=== PATIENT | female | born 1955 | race Caucasian/White ===

== ENCOUNTER → 2020-05-13 11:25 | Outpatient (CLI) | payer OTHER, SELFPAY ==
[2020-05-13 12:24] LABS: Basophils # 0.1 K/mm3 (0-0.2); Basophils % 1.3 % (0.1-2.0); Eosinophils # 0.3 K/mm3 (0.0-0.4); Eosinophils % 2.6 % (0.1-12.0); Hematocrit 41.9 % (37.0-47.0); Hemoglobin 14.5 g/dL (12.2-16.2); Lymphocytes # 2.7 K/mm3 (0.7-4.5); Lymphocytes % 25.5 % (10-50); Mean Corpuscular HGB Conc 34.6 g/dL (31.8-35.4); Mean Corpuscular Hemoglobin 31.9 pg (27.0-31.2); Mean Corpuscular Volume 92.4 fl (81-99); Mean Platelet Volume 7.8 fl (7.4-10.4); Monocytes # 0.5 K/mm3 (0.1-1.0); Monocytes % 4.3 % (1.7-9.3); Neutrophils % 66.3 % (37.0-80.0); Platelet Count 299 K/mm3 (142-424); Red Blood Count 4.53 M/mm3 (4.20-5.40); Red Cell Distribution Width 13.6 % (11.5-17.5); White Blood Count 10.6 K/mm3 (4.8-10.8)
[2020-05-13 12:41] LABS: Alanine Aminotransferase 27 U/L (12-78); Albumin Level 4.2 g/dl (3.5-5.0); Albumin/Globulin Ratio 1.2 (1.1-1.8); Alkaline Phosphatase 145 U/L (38-126); Anion Gap 13.9 mEq/L (5-15); Aspartate Amino Transferase 38 U/L (14-36); Bilirubin,Total 0.4 mg/dl (0.2-1.3); Blood Urea Nitrogen 23 mg/dl (7-17); Calcium 9.9 mg/dl (8.4-10.2); Carbon Dioxide 30 mmol/L (22.0-30.0); Chloride 102 mmol/L (98-107); Chol/HDL Ratio 4.2 (1-3.5); Cholesterol 184 mg/dl (140-200); Estimated Glomerular Filt Rate 55 ml/min (>60); GFR (African American) 67 ML/MIN (>60); Globulin 3.4 g/dL (1.3-3.2); Glucose 162 mg/dl (74-100); HDL Cholesterol 44 mg/dl (40-60); Potassium 4.9 mmoL/L (3.5-5.1); Sodium 141 mmol/L (136-145); Total Protein,Serum 7.6 g/dl (6.3-8.2); Triglycerides 217 mg/dl (30-150); VLDL Cholesterol 43 mg/dL (0-40)
[2020-05-13 12:52] LABS: Direct LDL Cholesterol 95.23 mg/dL (100-129)
[2020-05-13 13:05] LABS: Hemoglobin A1C 10.8 % (4.0-6.0)
[2020-05-13 13:12] LABS: Thyroid Stimulating Hormone 0.47 uIU/mL (0.465-4.68)
[2020-05-13 13:21] LABS: Creatinine,Urine Random 71 mg/dL (Not Estab.)
[2020-05-13 13:23] LABS: Microalbumin/Creatinine Ratio 181.9
[2020-05-13 13:30] LABS: Vitamin B12 720 pg/mL (239-931)
== END ==
PROVIDERS: Visit Provider Nurse Practitioner Family
DX: E11.65 Type 2 diabetes mellitus with hyperglycemia (principal); E11.42 Type 2 diabetes mellitus with diabetic polyneuropathy
CPT/HCPCS: 36415; 80053; 80061; 82043; 82570; 82607; 83036; 84443; 85025

== ENCOUNTER → 2020-06-25 12:53 | Outpatient (CLI) | payer OTHER, MEDICARE, SELFPAY ==
--- NOTE | 2020-06-25 12:57 | CT_ITS ---
PROCEDURE: CT LUNG SCREENING CLINICAL INDICATION: H/O NICOTINE DEPENDENCE FORMER SMOKER QUIT 6 YEARS AGO 88 pack year smoking history COPD CHEST WITH, 05/24/14 COMPARISON: CT CHW CT CHEST W/ CONTRAST from 05/24/2014 TECHNIQUE: The exam was performed on a [employer] Speed [address] scanner using 2.90 mGy CTDI. A low dose helical CT CHEST was performed on a multi-detector scanner. All CT scans at the facility use one or more dose reduction, viz: automated exposure control, ma/kV adjustment per patient size (including targeted exams where dose is matched to indication, i.e. head), or iterative reconstruction technique. The LDCT was performed in a facility that meets the criteria for the screening program. Data regarding this exam was submitted to ACR which is an approved registry. The order for this exam indicates that it came as a result of a lung cancer screening counseling shard decision-making visit that included all the elements required of such a visit including smoking cessation. The radiologist interpreting this exam meets the CMS criteria for the LDCT lung cancer screening program. The exam is reported using the Lung-RADS classification scale and reported to the ACR registry. NOTE: This study was performed for the specific purposes of lung cancer screening and is not an alternative to diagnostic chest CT. RADIATION DOSE: CTDI vol(CT dose Index-volume) = 2.90mG DLP (Dose Length Product) = 96.38 mGcm FINDINGS: Changes of COPD. Old granulomatous disease. No suspicious pulmonary nodules identified. OTHER FINDINGS: Coronary artery calcification. There are a few subphrenic lymph nodes on right and pre cardial lymph nodes which are not significantly changed. IMPRESSION: Lung-RADS Category 1 Negative Follow-up: Continue annual screening with LDCT in 12 months Dictated by: Cristobal Campos MD 07/16/2020 07:18 Cristobal Campos MD in [place] 07/16/2020 07:19
--- NOTE | 2020-06-25 12:58 | MM_ITS ---
PROCEDURE: MM DIG SCREENING MAMM BI W/CAD Digital Breast Tomosynthesis Included CLINICAL INDICATION: SCREENING There is no personal or family history of breast cancer. COMPARISON: MG DMSB DIGITAL MAMM-SCREEN BILATERAL from 10/03/2012 TECHNIQUE: Standard CC and MLO images and 3D Tomosynthesis was obtained. R2 CAD reviewed. FINDINGS: The breasts are composed primarily of fat with minimal scattered fibroglandular densities throughout each breast. There is a mole marker left breast. There is either unusual calcification or biopsy clip near the nipple right breast. There is no suspicious lesion and no suspicious microcalcifications. IMPRESSION: Fibrofatty parenchyma with no suspicious lesions seen BI-RAD Category: 2 Benign Finding(s) FOLLOW-UP: 1YR 1 Year Follow-up (A letter has been sent to the patient regarding results of the study.) Dictated by: Dr. Mookie Gilmore MD 06/27/2020 15:47 Dr. Mookie Gilmore MD in [place] 06/27/2020 15:47
== END ==
PROVIDERS: PCP Nurse Practitioner Family; Visit Provider Nurse Practitioner Family
DX: Z12.31 Encounter for screening mammogram for malignant neoplasm of breast (principal); Z87.891 Personal history of nicotine dependence; Z12.2 Encounter for screening for malignant neoplasm of respiratory organs; N95.9 Unspecified menopausal and perimenopausal disorder
CPT/HCPCS: 77063; 77067

== ENCOUNTER → 2020-07-10 12:48 | Outpatient (CLI) | payer OTHER, MEDICARE, SELFPAY ==
--- NOTE | 2020-07-10 12:57 | XR_ITS ---
PROCEDURE: XR DEXA AXIAL SKELETON CLINICAL HISTORY: POST MENOPAUSAL, history of hip or vertebral fracture as an adult COMPARISON: No exams were available for comparison FINDINGS: The total right hip BMD is 0.907 g per sq cm with a T-score of -0.3. The right femoral neck is 0.714 g per sq cm with a T-score -1.2.. The total left hip BMD is 0.978 g per sq cm with a T-score of 0.3. The left femoral neck is 0.761 g per sq cm. The lumbar spine BMD is 1.153 g per sq cm with a T-score of 1.0.. IMPRESSION: Normal values for the left hip and lumbar spine, mild osteopenia right hip Based on these results a follow-up exam is recommended in 2 year. Dictated by: Dr. Mookie Gilmore MD 07/10/2020 16:00 Dr. Mookie Gilmore MD in [place] 07/10/2020 16:00
== END ==
PROVIDERS: PCP Nurse Practitioner Family; Visit Provider Nurse Practitioner Family
DX: Z13.820 Encounter for screening for osteoporosis (principal); N95.9 Unspecified menopausal and perimenopausal disorder
CPT/HCPCS: 77080

== ENCOUNTER → 2020-09-11 14:44 | Outpatient (CLI) | payer OTHER, MEDICARE, SELFPAY ==
[2020-09-11 15:47] LABS: Hemoglobin A1C 9.8 % (4.0-6.0)
[2020-09-11 16:23] LABS: Chloride 104 mmol/L (98-107); Potassium 4.4 mmoL/L (3.5-5.1); Sodium 141 mmol/L (136-145)
[2020-09-11 16:26] LABS: Alanine Aminotransferase 14 U/L (12-78); Albumin Level 4.1 g/dl (3.5-5.0); Alkaline Phosphatase 145 U/L (38-126); Anion Gap 12.4 mEq/L (5-15); Aspartate Amino Transferase 26 U/L (14-36); Bilirubin,Total 0.4 mg/dl (0.2-1.3); Blood Urea Nitrogen 36 mg/dl (7-17); Calcium 10.2 mg/dl (8.4-10.2); Carbon Dioxide 29 mmol/L (22.0-30.0); Estimated Glomerular Filt Rate 50 ml/min (>60); GFR (African American) 60 ML/MIN (>60); Globulin 4.1 g/dL (1.3-3.2); Glucose 151 mg/dl (74-100); Total Protein,Serum 8.2 g/dl (6.3-8.2)
== END ==
PROVIDERS: Visit Provider Nurse Practitioner Family
DX: E11.9 Type 2 diabetes mellitus without complications (principal); Z79.4 Long term (current) use of insulin
CPT/HCPCS: 36415; 80053; 83036

== ENCOUNTER → 2021-01-19 14:57 | Outpatient (CLI) | payer OTHER, MEDICARE, SELFPAY ==
[2021-01-19 15:39] LABS: Hemoglobin A1C 9.2 % (4.0-6.0)
[2021-01-19 16:20] LABS: Chloride 101 mmol/L (98-107)
[2021-01-19 16:21] LABS: Sodium 142 mmol/L (136-145)
[2021-01-19 16:35] LABS: Direct LDL Cholesterol 85.88 mg/dL (100-129)
[2021-01-19 20:12] LABS: Alanine Aminotransferase 19 U/L (12-78); Albumin Level 4.2 g/dl (3.5-5.0); Albumin/Globulin Ratio 1.1 (1.1-1.8); Alkaline Phosphatase 129 U/L (38-126); Anion Gap 15.7 mEq/L (5-15); Aspartate Amino Transferase 29 U/L (14-36); Bilirubin,Total 0.4 mg/dl (0.2-1.3); Blood Urea Nitrogen 25 mg/dl (7-17); Calcium 9.4 mg/dl (8.4-10.2); Carbon Dioxide 30 mmol/L (22.0-30.0); Chol/HDL Ratio 4.9 (1-3.5); Cholesterol 180 mg/dl (140-200); Estimated Glomerular Filt Rate 63 ml/min (>60); GFR (African American) 76 ML/MIN (>60); Globulin 3.7 g/dL (1.3-3.2); Glucose 145 mg/dl (74-100); HDL Cholesterol 37 mg/dl (40-60); Potassium 4.7 mmoL/L (3.5-5.1); Total Protein,Serum 7.9 g/dl (6.3-8.2); Triglycerides 222 mg/dl (30-150); VLDL Cholesterol 44 mg/dL (0-40)
== END ==
PROVIDERS: Visit Provider Nurse Practitioner Family
DX: E11.42 Type 2 diabetes mellitus with diabetic polyneuropathy (principal)
CPT/HCPCS: 36415; 80053; 80061; 83036

== ENCOUNTER 2021-03-22 13:18 | Emergency (ER) | payer OTHER, MEDICARE, SELFPAY ==
[2021-03-22 13:37] VITALS: PULSE 117; RESP 16; TEMP 36.9; O2SAT 99; BMI 35.2
[2021-03-22 13:43] VITALS: BP 130/77; PULSE 117; RESP 20; TEMP 36.9
--- NOTE | 2021-03-22 14:05 | HMH.EDUTC ---
[facility] [place] Clinical Impression: Exposure to COVID-19 virus Disposition: Home, Self-Care Condition on Discharge: Good Instructions: Preventing the Spread of Coronavirus Discharge Instructions Additional Instructions: You have been tested for COVID19. Based on exposure, you need to quarantine even if negative. If positive, contact PCP to discuss possible antibody infusion due to comorbidities. Prescriptions: Albuterol Sulfate [Albuterol Sulfate Hfa] 2 puffs IH Q4HP PRN 30 Days #1 each PRN Reason: Shortness Of Breath [facility] guaiFENesin [Mucinex] 600 mg PO BID 10 Days #20 tab Transmission Status: [facility] Azithromycin [Z-Epifanio 250mg Tab] 250 mg PO DIRECTED #6 tab Transmission Status: [facility] Referrals: Feli Chavez APRN [Primary Care Provider] - Forms: Work/School Release Time of Disposition: 14:10 Medical Decision Making - Jorge Luis Inquiry Pt receiving controlled substance: No Vital Signs: 03/22/21 13:37 03/22/21 13:43 Temperature 98.5 F 98.5 F Temperature Source Oral Pulse Rate 117 H Pulse Rate [Left] 117 H Respiratory Rate 16 20 Blood Pressure 130/77 02 Sat by Pulse Oximetry 99 Orders (Tests/Meds): ORDERS Category Date Time Status Covid-19 Nasal PCR ([facility]) Routine Lab 03/22/21 13:39 [place] [facility] [place] - General Stated complaint: covid test, sore throat, runny nose headache Time Seen by Provider: 03/22/21 14:05 Mode of Arrival: Ambulatory Source of Information: Patient Limitations: No Limitations Description of Symptoms (Recalled from Triage Doc. by RN): pt c/o a cough accompanied by chest discomfort, STEPHENSON, and soa (copd pt.) exposed to covid YESTERDAY HEENT Symptoms (Recalled from RN notes): Yes (STEPHENSON) Resp Symptoms (Recalled from RN notes): Yes (cough and soa) Skin Symptoms (Recalled from RN notes): No MS Symptoms (Recalled from RN notes): No Functional Status (Recalled from RN notes): na - History of Present Illness Provider Complaint: Headache, cough, chest tightness since yesterday. No fever. No body aches or chills. Exposed to COVID19 yesterday. History of COPD and diabetes. Onset (ago): day(s) (1) Location: chest Relieving factors: none Exacerbating factors: none Associated symptoms: denies other symptoms, cough Treatments prior to arrival: none - Related Data Home Medications Medication Instructions Recorded Confirmed diclofenac sodium 1 % topical gel 2 g TOPICAL QID 05/27/20 05/27/20 empagliflozin 25 mg tablet 25 mg PO DAILY 05/27/20 05/27/20 gabapentin 100 mg capsule 100 mg PO DAILY 05/27/20 05/27/20 glimepiride 4 mg tablet 4 mg PO BID tab 05/27/20 05/27/20 insulin glargine U-300 conc 300 60 unit SQ DAILY 05/27/20 05/27/20 unit/mL (3 mL) subcutaneous pen insulin lispro 100 unit/mL 5 unit SQ TID 05/27/20 05/27/20 subcutaneous pen lisinopril 5 mg tablet 5 mg PO DAILY 05/27/20 05/27/20 omeprazole magnesium 20 mg 20 mg PO DAILY 05/27/20 05/27/20 tablet,delayed release pravastatin 40 mg tablet 40 mg PO DAILY 05/27/20 05/27/20 Previous Rx's Medication Instructions Recorded Albuterol Sulfate [Albuterol 2 puffs IH Q4HP PRN 30 Days #1 each 03/22/21 Sulfate Hfa] Azithromycin [Z-Epifanio 250mg Tab] 250 mg PO DIRECTED #6 tab 03/22/21 guaiFENesin [Mucinex] 600 mg PO BID 10 Days #20 tab 03/22/21 Allergies Allergy/AdvReac Type Severity Reaction Status Date / Time silver sulfadiazine Allergy Unknown Verified 05/27/20 13:14 [From Silvadene] - Worker's Comp Is this a Worker's Comp case?: No [facility] History - Hepatitis A Screen Drug use history?: No High risk sexual behaviors?: No History of sexually transmitted infection?: No Currently employed?: No Childcare worker?: No Do you have indoor plumbing?: Yes Do you have electricity?: Yes Attestation statement:: This patient has been screened for Hepatitis A risk factors. I hav
--- NOTE | 2021-03-23 10:45 | PC.NURSE ---
Notified pt of positive COVID results
== END 2021-03-22 14:19 | disposition home or self-care (01) ==
PROVIDERS: Emergency Provider Physician Assistant; PCP Nurse Practitioner Family
DX: U07.1 COVID-19 (principal); J44.9 Chronic obstructive pulmonary disease, unspecified; E11.9 Type 2 diabetes mellitus without complications
CPT/HCPCS: 99202; C9803; G0463; U0003; U0005

== ENCOUNTER → 2021-09-19 09:34 | Outpatient (CLI) | payer OTHER, MEDICARE, SELFPAY ==
[2021-09-19 10:14] LABS: Basophils # 0.2 K/mm3 (0-0.2); Basophils % 1.7 % (0.1-2.0); Eosinophils # 0.3 K/mm3 (0.0-0.4); Eosinophils % 2.6 % (0.1-12.0); Hematocrit 38.6 % (37.0-47.0); Hemoglobin 12.6 g/dL (12.2-16.2); Lymphocytes % 20.6 % (10-50); Mean Corpuscular HGB Conc 32.5 g/dL (31.8-35.4); Mean Corpuscular Hemoglobin 29.4 pg (27.0-31.2); Mean Corpuscular Volume 90.4 fl (81-99); Mean Platelet Volume 8.4 fl (7.4-10.4); Monocytes # 0.6 K/mm3 (0.1-1.0); Monocytes % 5.7 % (1.7-9.3); Neutrophils # 6.8 K/mm3 (1.8-7.8); Neutrophils % 69.3 % (37.0-80.0); Platelet Count 334 K/mm3 (142-424); Red Blood Count 4.27 M/mm3 (4.20-5.40); Red Cell Distribution Width 13.7 % (11.5-17.5); White Blood Count 9.8 K/mm3 (4.8-10.8)
[2021-09-19 10:48] LABS: Alanine Aminotransferase 18 U/L (12-78); Albumin Level 3.6 g/dl (3.5-5.0); Albumin/Globulin Ratio 1.1 (1.1-1.8); Alkaline Phosphatase 161 U/L (38-126); Anion Gap 10.1 mEq/L (5-15); Aspartate Amino Transferase 25 U/L (14-36); Bilirubin,Total 0.3 mg/dl (0.2-1.3); Blood Urea Nitrogen 18 mg/dl (7-17); Calcium 8.8 mg/dl (8.4-10.2); Carbon Dioxide 28 mmol/L (22.0-30.0); Chloride 105 mmol/L (98-107); Chol/HDL Ratio 4.6 (1-3.5); Cholesterol 176 mg/dl (140-200); Estimated Glomerular Filt Rate 72 ml/min (>60); GFR (African American) 87 ML/MIN (>60); Globulin 3.2 g/dL (1.3-3.2); Glucose 224 mg/dl (74-100); HDL Cholesterol 38 mg/dl (40-60); Potassium 4.1 mmoL/L (3.5-5.1); Sodium 139 mmol/L (136-145); Total Protein,Serum 6.8 g/dl (6.3-8.2); Triglycerides 243 mg/dl (30-150); VLDL Cholesterol 49 mg/dL (0-40)
[2021-09-19 11:57] LABS: Hemoglobin A1C 12.7 % (4.0-6.0)
== END ==
PROVIDERS: Visit Provider Nurse Practitioner Family
DX: E11.65 Type 2 diabetes mellitus with hyperglycemia (principal); K21.9 Gastro-esophageal reflux disease without esophagitis; Z79.4 Long term (current) use of insulin
CPT/HCPCS: 36415; 80053; 80061; 83036; 85025

== ENCOUNTER → 2021-09-29 13:03 | Outpatient (CLI) | payer OTHER, MEDICARE, SELFPAY ==
--- NOTE | 2021-09-29 13:06 | MM_ITS ---
PROCEDURE INFORMATION: Exam: MG Bilateral Screening 3D Mammography Exam date and time: 09/29/2021 1:17 PM Age: 66 years old Clinical indication: Encounter for screening mammogram for malignant neoplasm of breast TECHNIQUE: Imaging protocol: Bilateral Screening tomosynthesis and 2D mammography including computer-aided detection (CAD) when performed. COMPARISON: 1. MG MM DIG SCREENING MAMM BI W/CAD 06/25/2020 1:03 PM 2. MG DMSB DIGITAL MAMM-SCREEN BILATERAL 10/03/2012 9:22 AM FINDINGS: MAMMOGRAPHY: Breast composition: There are scattered areas of fibroglandular density. Mass: No suspicious masses. Architectural distortion: No suspicious distortion. Calcifications: No suspicious calcifications. Asymmetric density: None. Skin thickening: None. Axillary adenopathy: None. IMPRESSION: No mammographic evidence of malignancy. Annual screening is recommended unless otherwise clinically indicated. ASSESSMENT: BI-RADS Category 1: Negative
--- NOTE | 2021-09-29 13:06 | CT_ITS ---
FINAL REPORT CLINICAL HISTORY: H/O NICOTINE DEPENDENCE FORMER SMOKER QUIT 6 YEARS AGO 2PPD X45 YEARS COMPARISON: June 25, 2020 FINDINGS: Low-Dose Chest CT CTDI vol (mGy): 2.90 DLP (mGy-cm): 98.99 Axial images were obtained from the lung apex to the mid abdomen by computed tomography. Low-dose protocol was utilized. FINDINGS: CHEST: There is no axillary adenopathy. There is no mediastinal adenopathy. There are densely calcified bilateral hilar lymph nodes. The heart is proper size. There is no pericardial or pleural effusion. Limited images of the upper abdomen shows postoperative changes from cholecystectomy. Lung window images demonstrate scarring in the lung bases. There is no suspicious infiltrate or nodule. IMPRESSION: Lung RADS category 1. Recommend 12 month follow-up low-dose chest CT. Reviewed, Interpreted and Dictated by Maxx Carlisle MD Transcribed by Chayito Olmedo Authenticated by Maxx Carlisle MD on 09/29/2021 01:53:[address] [facility]
== END ==
PROVIDERS: PCP Nurse Practitioner Family; Visit Provider Nurse Practitioner Family
DX: Z12.31 Encounter for screening mammogram for malignant neoplasm of breast (principal); Z87.891 Personal history of nicotine dependence; Z12.2 Encounter for screening for malignant neoplasm of respiratory organs
CPT/HCPCS: 71271; 77063; 77067

== ENCOUNTER → 2022-02-17 07:43 | Outpatient (CLI) | payer OTHER, MEDICARE, SELFPAY ==
[2022-02-17 08:27] LABS: Hemoglobin A1C 10.7 % (4.0-6.0)
[2022-02-17 08:46] LABS: Chloride 104 mmol/L (98-107); Potassium 5.1 mmoL/L (3.5-5.1); Sodium 141 mmol/L (136-145)
[2022-02-17 08:49] LABS: Albumin Level 4.1 g/dl (3.5-5.0); Albumin/Globulin Ratio 1.2 (1.1-1.8); Anion Gap 13.1 mEq/L (5-15); Blood Urea Nitrogen 31 mg/dl (7-17); Carbon Dioxide 29 mmol/L (22.0-30.0); Estimated Glomerular Filt Rate 55 ml/min (>60); GFR (African American) 67 ML/MIN (>60); Globulin 3.5 g/dL (1.3-3.2); Total Protein,Serum 7.6 g/dl (6.3-8.2)
[2022-02-17 08:50] LABS: Glucose 249 mg/dl (74-100); HDL Cholesterol 41 mg/dl (40-60)
[2022-02-17 09:12] LABS: Alkaline Phosphatase 162 U/L (38-126); Chol/HDL Ratio 4.6 (1-3.5); Cholesterol 189 mg/dl (140-200); Triglycerides 197 mg/dl (30-150); VLDL Cholesterol 39 mg/dL (0-40)
[2022-02-17 09:13] LABS: Calcium 9.7 mg/dl (8.4-10.2)
[2022-02-17 09:15] LABS: Bilirubin,Total < 0.1 mg/dl (0.2-1.3)
[2022-02-17 09:39] LABS: Alanine Aminotransferase 16 U/L (12-78); Aspartate Amino Transferase 27 U/L (14-36)
[2022-02-18 10:11] LABS: Direct LDL Cholesterol 109 mg/dL (100-129)
== END ==
PROVIDERS: PCP Nurse Practitioner Family; Visit Provider Nurse Practitioner Family
DX: E11.65 Type 2 diabetes mellitus with hyperglycemia (principal); E11.42 Type 2 diabetes mellitus with diabetic polyneuropathy; Z79.4 Long term (current) use of insulin
CPT/HCPCS: 36415; 80053; 80061; 83036

== ENCOUNTER → 2022-03-06 10:59 | Outpatient (CLI) | payer OTHER, MEDICARE, SELFPAY | PROVIDERS: PCP Nurse Practitioner Family; Visit Provider Nurse Practitioner Family | DX: R30.0 Dysuria (principal); B96.29 Other Escherichia coli [E. coli] as the cause of diseases classified elsewhere | CPT/HCPCS: 87086; 87088; 87186 ==

== ENCOUNTER 2022-12-21 06:58 | Day surgery (SDC) | payer OTHER, MEDICARE, SELFPAY ==
[2022-12-20 10:39] VITALS: BMI 36.7
[2022-12-21 07:57] VITALS: BP 141/62; PULSE 84; RESP 16; TEMP 36.2; O2SAT 99
[2022-12-21 08:09] LABS: POC Glucose,Bedside 133 (70-110)
[2022-12-21 09:01] VITALS: BP 139/73; PULSE 82; RESP 16; O2SAT 96
[2022-12-21 09:07] VITALS: BP 123/75; PULSE 79; RESP 17; O2SAT 95
[2022-12-21 09:12] VITALS: BP 129/68; PULSE 79; RESP 16; O2SAT 95
[2022-12-21 09:17] VITALS: BP 128/73; PULSE 78; RESP 17; O2SAT 95
[2022-12-21 09:40] VITALS: BP 128/67; PULSE 86; RESP 18; TEMP 36.1; O2SAT 95
== END 2022-12-21 09:31 | disposition home or self-care (01) ==
PROVIDERS: PCP Nurse Practitioner Family; Visit Provider Ophthalmology
PROC: (CPT 66984; principal; 2022-12-21 09:00)
DX: E11.36 Type 2 diabetes mellitus with diabetic cataract (principal); H25.9 Unspecified age-related cataract
CPT/HCPCS: 66984; 82962; V2632

== ENCOUNTER 2023-01-04 07:45 | Day surgery (SDC) | payer OTHER, MEDICARE, SELFPAY ==
[2022-12-30 15:35] VITALS: BMI 36.7
[2023-01-04] VITALS (8 sets, daily range): BP systolic 128–161; BP diastolic 68–85; PULSE 71–76; RESP 16–18; TEMP 36.6–36.8; O2SAT 96–100
[2023-01-04 08:32] LABS: POC Glucose,Bedside 130 (70-110)
== END 2023-01-04 09:39 | disposition home or self-care (01) ==
PROVIDERS: PCP Nurse Practitioner Family; Visit Provider Ophthalmology
PROC: (CPT 66984; principal; 2023-01-04 10:00)
DX: H25.812 Combined forms of age-related cataract, left eye (principal); E11.9 Type 2 diabetes mellitus without complications
CPT/HCPCS: 66984; 82962; V2632

== ENCOUNTER 2024-03-24 16:38 | Emergency (ER) | payer OTHER, MEDICARE, SELFPAY ==
[2024-03-24 16:40] VITALS: BP 128/76; PULSE 89; RESP 20; TEMP 36.8; O2SAT 98; BMI 29.2
[2024-03-24 17:00] VITALS: BP 135/72; PULSE 94; O2SAT 92
--- NOTE | 2024-03-24 17:29 | ECG_ITS ---
APPROVED REPORT Exam: Resting ECG HR:90 bpm ECG Measurements Heart Rate 90 AXES NJ 159 P 47 QRSd 90 QRS 82 QT 357 T 48 QTc 405 Conclusion SINUS RHYTHM NORMAL ECG UNCONFIRMED REPORT Electronically signed by : Bipin Steven, 03/24/2024 23:09:43
--- NOTE | 2024-03-24 17:29 | XR_ITS ---
PROCEDURE INFORMATION: Exam: XR Chest Exam date and time: 03/24/2024 5:49 PM Age: 68 years old Clinical indication: Dyspnea TECHNIQUE: Imaging protocol: Radiologic exam of the chest. Views: 1 view. COMPARISON: CT LUNG SCREENING 09/29/2021 1:14 PM FINDINGS: Lungs: No evidence of acute pulmonary disease or infiltrates Pleural spaces: No large effusion or pneumothorax. Heart/Mediastinum: Stable cardiac and mediastinal contours. Bones/joints: No evidence of acute osseous abnormalities within the visualized portions of the thoracic spine and ribs. Osseous structures appear appropriate for patient age. IMPRESSION: No dense parenchymal consolidation, pleural effusion, or pneumothorax.
[2024-03-24 17:30] VITALS: BP 139/66; PULSE 89; O2SAT 96
--- NOTE | 2024-03-24 17:31 | ED_ITS ---
<Statement entered by Jaden Steven MD - 03/24/24 22:29> I was consulted by the ROSELINE, and we discussed the complexity of the problems being addressed. I approved the treatment and management plan for this patient's care in the emergency department, thus performing a substantive portion of the medical decision making. Jaden Steven MD, NICOLLE, FACEP Discharge Plan Disposition Patient Disposition: Home, Self-Care Condition: Good Prescriptions Prescriptions: New albuterol sulfate 2.5 mg /3 mL (0.083 %) solution for nebulization 2.5 mg inhalation Q6H PRN (Reason: dyspnea) Qty: 75 0RF (DME) nebulizer and compressor Device See Rx Instructions .Route Qty: 1 0RF Rx Instructions: As directed No Action gabapentin 100 mg capsule 100 mg PO DAILY pravastatin 40 mg tablet 40 mg PO DAILY lisinopril 5 mg tablet 5 mg PO DAILY Jardiance 25 mg tablet 25 mg PO DAILY insulin lispro [Humalog KwikPen Insulin] 100 unit/mL insulin pen 16 unit SQ TID Toujeo Max U-300 SoloStar 300 unit/mL (3 mL) insulin pen 90 unit SQ DAILY omeprazole magnesium [Prilosec OTC] 20 mg tablet,delayed release (DR/EC) 20 mg PO DAILY diclofenac sodium [Arthritis Pain (diclofenac)] 1 % gel 2 g TOPICAL QID Rx Instructions: apply to single elbow, wrist or hand; for hand includes palm/fingers/back of hand albuterol sulfate 8.5 GM HFA aerosol inhaler 2 puffs IH Q4HP PRN (Reason: Shortness Of Breath) 30 Days Qty: 1 0RF Referrals Follow up/Referrals: Jerod Post MD [Staff Physician] - 3 days (Call Tuesday morning for an appointment ) Feli Chavez APRN [Primary Care Provider] - 3 days Activity Restrictions/Add. Instructions Additional Instructions/Restrictions: Please follow up with your PCP as well as cardiology. Return to the ED if you have any worsening of symptoms or chest pain. Clinical Impressions Clinical Impression: VEE (dyspnea on exertion) Print Language Print Language: Faroese Discharge ED Provider: Jaden Steven General Adult HPI General Chief complaint: Shortness of Breath/Dyspnea Stated complaint: SOA Time Seen by Provider: 03/24/24 17:22 Mode of Arrival: Ambulatory Source of Information: Patient Limitations: No Limitations Description of Symptoms (Recalled from ER Triage Doc. by RN): c/o soa, dizziness and weakness since 1400 today History of Present Illness HPI narrative: Patient presents with acute onset of dyspnea. 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 She denies any chest pain. She is experiencing some generalized weakness, dizziness and near syncope. She does have a history of mild COPD and diabetes. She denies any cough, fever or vomiting. Related Data Home Medications ?Medication ?Instructions ?Recorded ?Confirmed diclofenac sodium 1 % topical gel 2 g topical QID Pain 05/27/20 12/30/22 (Arthritis Pain (diclofenac)) empagliflozin 25 mg tablet 25 mg PO DAILY Diabetes 05/27/20 12/30/22 (Jardiance) gabapentin 100 mg capsule 100 mg PO DAILY Pain 05/27/20 12/30/22 insulin glargine U-300 conc 300 90 unit SQ DAILY Diabetes 05/27/20 12/30/22 unit/mL (3 mL) subcutaneous pen (Toujeo Max U-300 SoloStar) insulin lispro 100 unit/mL 16 unit SQ TID Diabetes 05/27/20 12/30/22 subcutaneous pen (Humalog KwikPen (U-100) Insulin) lisinopril 5 mg tablet 5 mg PO DAILY High blood pressure 05/27/20 12/30/22 omeprazole magnesium 20 mg 20 mg PO DAILY Acid reflux 05/27/20 12/30/22 tablet,delayed release (Prilosec OTC) pravastatin 40 mg tablet 40 mg PO DAILY Cholesterol 05/27/20 12/30/22 Previous Rx's ?Medication ?Instructions ?Recorded albuterol sulfate 90 mcg/actuation 2 puffs IH Q4HP PRN Shortness Of 03/22/21 aerosol inhaler Breath 30 days #1 ea albuterol sulfate 2.5 mg/3 mL 2.5 mg (3 mL) inhalation Q6H PRN 03/24/24 (0.083 %) solution for nebulization dyspnea #75 mL nebulizer and compressor #1 ea 03/24/24 Allergies Allergy/AdvReac Type Severity Reaction Status Date / Time silver sulfadiazine Allergy Unknown Verified 01/04/23 08:18 [From [place]] [facility] Disclaimer: The information contained in this section may have been updated after the patient was seen, as this information can be updated by other users. Medical History (Updated 03/24/24 @ 21:05 by MICHELLE Bill) Sleep apnea COPD (chronic obstructive pulmonary disease) Gout History of gastroesophageal reflux (GERD) Diabetes mellitus, type 2 History of cataract Surgical History History of section History of hysterectomy History of cholecystectomy Family History Other Family history of cancer Family history of diabetes mellitus type II Family history of myocardial infarction Social History Smoking Status: Unknown if ever smoked alcohol intake: current substance use type: denies use current occupational status: employed Travel in the last 8 weeks: None ROS Obtained: Yes Systems reviewed as appropriate & no additional complaints except as documented Physical Exam General General appearance: alert and in no apparent distress Head Head exam: atraumatic and normocephalic Eye Eye exam: Present normal appearance and EOMI Chest Chest inspection: Present symmetric chest wall rise Respiratory Respiratory exam: Present normal lung sounds bilaterally; Absent wheezes or stridor Cardiovascular Cardiovascular exam: Present regular rate and normal rhythm; Absent systolic murmur Extremities Exam Extremities exam: Present full ROM; Absent edema Neurological Exam Neurological exam: Present alert and oriented X3 Psychiatric Psychiatric exam: Present normal affect and normal mood Skin Skin exam: Present warm, dry and intact Medical Decision Making Jorge Luis Inquiry Pt receiving controlled substance: No Vital Signs: 03/24/24 16:40 03/24/24 17:00 03/24/24 17:30 Temperature 98.2 F Temperature Source Oral Pulse Rate 94 H 89 Pulse Rate [Left Radial] 89 Respiratory Rate 20 Blood Pressure 135/72 139/66 Blood Pressure [Right Arm] 128/76 Blood Pressure Mean [Right Arm] 93 Blood Pressure Source Blood Pressure Source [Right Arm] Automatic Cuff Blood Pressure Position Blood Pressure Position [Right Arm] Sitting 02 Sat by Pulse Oximetry 98 92 L 96 Oxygen Delivery Method Room Air Room Air Room Air 03/24/24 18:37 03/24/24 19:45 Temperature Temperature Source Pulse Rate 85 88 Pulse Rate [Left Radial] Respiratory Rate 20 Blood Pressure 151/78 H 126/74 Blood Pressure [Right Arm] Blood Pressure Mean [Right Arm] Blood Pressure Source Automatic Cuff Blood Pressure Source [Right Arm] Blood Pressure Position Sitting Blood Pressure Position [Right Arm] 02 Sat by Pulse Oximetry 98 96 Oxygen Delivery Method Room Air Lab Data Lab Results 03/24/24 17:43: WBC 11.5 H, RBC 4.33, Hgb 12.5, Hct 40.1, MCV 92.6, MCH 28.9, M CHC 31.2 L, RDW 14.0, Plt Count 311, MPV 9.0, Neut % (Auto) 77.2, Lymph % (Auto) 15.8, [place] % (Auto) 4.3, Eos % (Auto) 1.8, Baso % (Auto) 0.9, Neut # (Auto) 8.9 H, Lymph # (Auto) 1.8, [place] # (Auto) 0.5, Eos # (Auto) 0.2, Baso # (Auto) 0.1, D -Dimer 0.57 H, Sodium 137, Potassium 4.3, Chloride 105, Carbon Dioxide 27, Anion Gap 9.3, BUN 26 H, Creatinine 1.00, Estimated Creat Clear 57, Estimated GFR 55 L , Est GFR ( Amer) 67, Glucose 167 H, Calcium 8.7, Total Bilirubin 0.5, AST 32, ALT 20, Alkaline Phosphatase 106, Troponin I < 0.01, NT-Pro-B Natriuret Pep 91.3, Total Protein 6.7, Albumin 3.2 L, Globulin 3.5 H, Albumin/Globulin Ratio 0.9 L 03/24/24 18:35: SARS-CoV-2 (PCR) Not detected, Influenza A Untype (PCR) Not detected, Influenza Type B (PCR) Not detected 03/24/24 20:30: Troponin I 0.01 03/24/24 17:43 03/24/24 17:43 Orders (Tests/Meds): ED MEDICATIONS Generic Name Dose Route Start Last Admin Trade Name Freq PRN Reason Stop Dose Admin Sodium Chloride 10 ml 03/24/24 17:28 Sodium Chloride 0.9% 10ml Flush Syringe IV 04/23/24 17:27 NEEDED PRN Maintain IV Site Discontinued Medications Generic Name Dose Route Start Last Admin Trade Name Freq PRN Reason Stop Dose Admin Albuterol Sulfate 2.5 mg 03/24/24 17:27 03/24/24 17:37 Albuterol 0.083% 2.5 Mg/3 Ml Neb IH 03/24/24 17:28 2.5 mg ONCE ONE Administration ORDERS Category Date Time Status XR chest portable Stat Exams 03/24/24 17:29 Completed Complete Blood Count Auto Diff Stat Lab 03/24/24 17:43 Completed Comprehensive Metabolic Panel Stat Lab 03/24/24 17:43 Completed D-Dimer Stat Lab 03/24/24 17:43 Completed NT Pro Brain Natriuretic Pep. Stat Lab 03/24/24 17:43 Completed Rapid PCR Covid and Flu A/B Stat Lab 03/24/24 18:35 Completed Troponin I Q3H Lab 03/24/24 17:43 Completed Troponin I Q3H Lab 03/24/24 20:30 Completed Troponin I Q3H Lab 03/24/24 23:30 Ordered Radiology Data #1: Image(s): Chest (No dense parenchymal consolidation, pleural effusion, or pneumothorax. ) Medical Decision Narrative: In summary patient is a 68-year-old female who presents the emergency department for evaluation of dyspnea. Patient is hemodynamically stable upon arrival, afebrile. Unremarkable physical exam. Differential diagnosis includes COPD, pneumonia, CHF, pulmonary embolism. Initial workup will be conducted with labs, chest x-ray, D-dimer, COVID and flu swab. Initial inventions include albuterol neb. Initial workup reviewed by me D-dimer is 0.57, per years criteria no further workup indicated as patient is low risk for pulmonary embolism. Upon repeat evaluation symptoms have resolved with albuterol. Given this patient is appropriate for discharge with prescription for albuterol. She will follow-up with her PCP this week as well as cardiology for further workup. Advised to return for any worsening or new symptoms. I informally interpreted the patient's chest x-ray or CT read and is unremarkable. Critical Care Critical Care Time Critical Care Time: No
[2024-03-24] MEDS: ALBUTEROL 0.083% 2.5 MG/3 ML NEB IH (17:37)
[2024-03-24 17:51] LABS: Basophils # 0.1 K/mm3 (0-0.2); Basophils % 0.9 % (0.1-2.0); Eosinophils # 0.2 K/mm3 (0.0-0.4); Eosinophils % 1.8 % (0.1-12.0); Hematocrit 40.1 % (37.0-47.0); Hemoglobin 12.5 g/dL (12.2-16.2); Lymphocytes # 1.8 K/mm3 (0.7-4.5); Lymphocytes % 15.8 % (10-50); Mean Corpuscular HGB Conc 31.2 g/dL (31.8-35.4); Mean Corpuscular Hemoglobin 28.9 pg (27.0-31.2); Mean Corpuscular Volume 92.6 fl (81-99); Monocytes # 0.5 K/mm3 (0.1-1.0); Monocytes % 4.3 % (1.7-9.3); Neutrophils # 8.9 K/mm3 (1.8-7.8); Neutrophils % 77.2 % (37.0-80.0); Platelet Count 311 K/mm3 (142-424); Red Blood Count 4.33 M/mm3 (4.20-5.40); White Blood Count 11.5 K/mm3 (4.8-10.8)
[2024-03-24 18:02] LABS: Alanine Aminotransferase 20 U/L (12-78); Albumin Level 3.2 g/dl (3.5-5.0); Albumin/Globulin Ratio 0.9 (1.1-1.8); Alkaline Phosphatase 106 U/L (38-126); Anion Gap 9.3 mEq/L (5-15); Aspartate Amino Transferase 32 U/L (14-36); Bilirubin,Total 0.5 mg/dl (0.2-1.3); Blood Urea Nitrogen 26 mg/dl (7-17); Calcium 8.7 mg/dl (8.4-10.2); Carbon Dioxide 27 mmol/L (22.0-30.0); Chloride 105 mmol/L (98-107); Creatinine Clearance Estimated 57 mL/min (50-200); Estimated Glomerular Filt Rate 55 ml/min (>60); GFR (African American) 67 ML/MIN (>60); Globulin 3.5 g/dL (1.3-3.2); Glucose 167 mg/dl (74-100); Potassium 4.3 mmoL/L (3.5-5.1); Sodium 137 mmol/L (136-145); Total Protein,Serum 6.7 g/dl (6.3-8.2)
[2024-03-24 18:07] LABS: D-Dimer 0.57 ug/mL (0.0-0.5)
[2024-03-24 18:15] LABS: NT Pro Brain Natriuretic Pep. 91.3 pg/mL (0-125)
[2024-03-24 18:17] LABS: Troponin I < 0.01 ng/ml (0.00-0.034)
[2024-03-24 18:37] VITALS: BP 151/78; PULSE 85; O2SAT 98
[2024-03-24 18:42] LABS: Coronavirus 19, PCR Not Detected (NotDetected); Influenza A, PCR Not Detected (NotDetected); Influenza B, PCR Not Detected (NotDetected)
--- NOTE | 2024-03-24 19:00 | PC.NURSE ---
Pt resting in bed. No needs voiced. Call light within reach.
[2024-03-24 19:45] VITALS: BP 126/74; PULSE 88; RESP 20; O2SAT 96
--- NOTE | 2024-03-24 19:46 | PC.NURSE ---
1925: resting and awaiting second troponin to drawn at 2030
[2024-03-24 20:56] LABS: Troponin I 0.01 ng/ml (0.00-0.034)
[2024-03-24 21:11] VITALS: BP 143/86; PULSE 85; RESP 20; TEMP 37; O2SAT 98
== END 2024-03-24 21:13 | disposition home or self-care (01) ==
PROVIDERS: Physician Assistant; Emergency Provider Student in an Organized Health Care Education/Training Program; PCP Nurse Practitioner Family
DX: R06.02 Shortness of breath (principal); R55 Syncope and collapse; R42 Dizziness and giddiness; R53.1 Weakness; J44.9 Chronic obstructive pulmonary disease, unspecified; E11.9 Type 2 diabetes mellitus without complications; Z79.4 Long term (current) use of insulin; Z79.84 Long term (current) use of oral hypoglycemic drugs
CPT/HCPCS: 71045; 80053; 83880; 84484; 85025; 85378; 87636; 93005; 99284; J7613

== ENCOUNTER 2024-03-27 09:01 | Outpatient (CLI) | payer OTHER, MEDICARE, SELFPAY ==
--- NOTE | 2024-03-27 09:03 | XR_ITS ---
FINAL REPORT TECHNIQUE: Bone densitometry calculations of the lumbar spine and left hip were obtained. CLINICAL HISTORY: SCREENING COMPARISON: None FINDINGS: Using L1-4, the bone mineral density of the spine is 1.245 g/cm2, corresponding to T-score of 1.8. Using the left hip, the bone mineral density of the femoral neck is 0.855 g/cm2, corresponding to a T-score of 0.1. NOTE: T-score: Standard deviation compared with peak bone mass of young adult mean. *Following the recommendations of the International Society of Bone densitometry, classification of hip BMD is based on the lower of two T-scores; total hip or femoral neck. IMPRESSION: Normal bone mineral density of the lumbar spine and hip. Reviewed, Interpreted and Dictated by Maxx Carlisle MD Transcribed by Avani Kapadia Authenticated and [facility]
--- NOTE | 2024-03-27 09:05 | CT_ITS ---
FINAL REPORT TECHNIQUE: Thin section axial images were obtained from the lung apices to the upper abdomen by computed tomography. Reformatted images were obtained and reviewed. This study was performed with techniques to keep radiation doses al low as reasonably achievable (ALARA). Individualized dose reduction techniques using automated exposure control or adjustment of mA and/or kV according to the patient's size were employed. CLINICAL HISTORY: SCREENING previous smoker 10 years ago, 2 1/2 ppd x 20 years COMPARISON: 09/29/2021 FINDINGS: CHEST CT LOW DOSE 69-year-old female, former smoker who quit 10 years ago, [id number] history CTDI vol (mGy): 2.9 DLP (mGy-cm): 96.38 There is no axillary adenopathy. There is no mediastinal or hilar mass or adenopathy. The heart is normal in size. There is no pericardial or pleural effusion. Lung window images demonstrate no suspicious infiltrate or nodule. Scattered bilateral calcified granulomas and calcified hilar nodes are present. Limited images of the upper abdomen reveal a prior cholecystectomy. IMPRESSION: Lung-RADS category 1. Recommend 12 month follow up low dose chest CT. Reviewed, Interpreted and Dictated by Maxx Carlisle MD Transcribed by Avani Kapadia Authenticated and [facility]
--- NOTE | 2024-03-27 09:05 | MM_ITS ---
PROCEDURE INFORMATION: Exam: MG Bilateral Screening 3D Mammography Exam date and time: 03/27/2024 9:29 AM Age: 68 years old Clinical indication: Screening examination TECHNIQUE: Imaging protocol: Bilateral Screening tomosynthesis and 2D mammography including computer-aided detection (CAD) when performed. COMPARISON: 1. MG MM DIG SCREENING MAMM BI W/CAD 09/29/2021 1:17 PM 2. MG MM DIG SCREENING MAMM BI W/CAD 06/25/2020 1:03 PM FINDINGS: MAMMOGRAPHY: Breast composition: The breasts are almost entirely fatty. Mass: None. Architectural distortion: None. Calcifications: No suspicious calcifications. Asymmetric density: None. Skin thickening: None. Axillary adenopathy: None. IMPRESSION: No mammographic evidence of malignancy. Annual screening is recommended unless otherwise clinically indicated. ASSESSMENT: BI-RADS Category 1: Negative.
== END 2024-03-27 23:59 | disposition home or self-care (01) ==
LOC: RAD 09:01
PROVIDERS: PCP Nurse Practitioner Family; Visit Provider Nurse Practitioner Family
DX: Z78.0 Asymptomatic menopausal state (principal); Z87.891 Personal history of nicotine dependence; Z12.31 Encounter for screening mammogram for malignant neoplasm of breast
CPT/HCPCS: 71271; 77063; 77067; 77080

== ENCOUNTER 2024-12-05 07:30 | Outpatient (CLI) | payer OTHER, MEDICARE, SELFPAY ==
--- NOTE | 2024-12-05 | CA_ITS ---
APPROVED REPORT EXAM: Comprehensive 2D, Doppler, and color-flow Echocardiogram Transportation Modeler: Courtney Adame RT(R) Ht: 5 ft 0 in Wt: 165lbs BSA: 1.72 BP: 126/74 mmHg Indications: SOB, COPD, DM, VEE, family history of HD, fatigue, ex smoker. 2D Dimensions LVEF (Ballard's) 61.70 % F: 54 - 74 LV Volume 75.10 mL F: 46 - 106 LV Volume Index 43.7 mL/m2 F: 29 - 61 LA Volume 23.90 mL LA Volume Index 13.90 mL/m2 (M/F) 16-34 EF AP4 64.70 % EF AP2 58.6 % EF BP 61.7 % GL Strain -19.7 % M-Mode Dimensions RVDd 2.85 cm (0.9-2.6) LA Diam 3.09 cm (1.9-4.0) LVDd 3.58 cm (3.5-5.7) LVDs 2.63 cm (3.5-5.7) IVSd 0.76 cm (0.6-1.1) PWd 0.76 cm (0.6-1.1) EF (Teich) 52.90% FS 26.50% EDV (Teich) 53.70 mL ESV (Teich) 25.30 mL LV Diastology E Decel Time 240 (160-240 msec) E/A Ratio 0.7 Mitral Valve MV E Max Nic. 80.0 (40-130 cm/s) MV A Velocity 117.0 (40-130 cm/s) E/A Ratio 0.69 MV PHT 70.0 ms Left Ventricle The left ventricle is normal size. The left ventricular systolic function is normal. The left ventricular ejection fraction is within the normal range. There is normal left ventricular wall thickness. There is normal LV segmental wall motion. The left ventricular diastolic function is normal. LVEF is 60%. Right Ventricle The right ventricle is normal size. The right ventricular systolic function is normal. Atria The left atrium size is normal. The right atrium size is normal. There is no Doppler evidence of interatrial shunt. Aortic Valve The aortic valve is mildly thickened. Trace aortic regurgitation. There is no aortic valvular stenosis. Mitral Valve The mitral valve is normal in structure. No evidence of mitral valve stenosis. Trace mitral regurgitation. Tricuspid Valve Tricuspid valve is grossly normal in structure and function. Trace tricuspid regurgitation. There is insufficient TR jet to estimate RVSP. Pulmonic Valve The pulmonary valve is normal in structure. Trace pulmonic regurgitation. Great Vessels The aortic root is normal in size. IVC is normal in size and collapses >50% with inspiration. Pericardium There is no pericardial effusion. Other Information Study Quality: Adequate Conclusion Normal biventricular systolic function. No significant valvular stenosis or regurgitation. Electronically signed by : Lisa Braswell MD 12/10/2024 22:06:02
== END 2024-12-05 23:59 | disposition home or self-care (01) ==
LOC: RT 07:32
PROVIDERS: PCP Nurse Practitioner Family; Visit Provider Nurse Practitioner Family
DX: J44.9 Chronic obstructive pulmonary disease, unspecified (principal); E11.9 Type 2 diabetes mellitus without complications; R42 Dizziness and giddiness; Z83.438 Family history of other disorder of lipoprotein metabolism and other lipidemia; Z87.891 Personal history of nicotine dependence
CPT/HCPCS: 93306

== ENCOUNTER 2025-01-28 14:53 | Outpatient (CLI) | payer OTHER, MEDICARE, SELFPAY ==
--- OUTSIDE RECORDS SUMMARY | 2025-01-28 14:57 | XMS_ITS | Clinical Summary ---
Author Organization Healthcare Address [address] [place] [address] Care Team Providers Care Staffing Coordinator Name Role Phone David Cerna MD Primary Care Provider +1- [phone] Family History Medical History Relation Name Comments Other cancer Brother Other cancer Father Diabetes Mother Heart attack Mother Other cancer Mother Other cancer Sister Relation Name Status Comments Brother Father Mother Sister Social History Tobacco Use Types Packs/Day Years Used Date Smoking Tobacco: Every Day Alcohol Use Standard Drinks/Week Comments No 0 (1 standard drink = 0.6 oz pur e alcohol) Comments Unknown Sex and Gender Information Value Date Recorded Sex Assigned at Not on file Legal Sex Female 6:35 PM EDT Gender Identity Not on file Sexual Orientation Not on file Last Filed Vital Signs Vital Sign Reading Time Taken Comments Blood Pressure - - Pulse - - Temperature - - Respiratory Rate - - Oxygen Saturation - - Inhaled Oxygen Concentration - - Weight 72.6 kg (160 lb 0.2 oz) 03/04/2014 2:50 P M EDT Height 152.4 cm (5') 03/04/2014 2:50 PM EDT Body Mass Index 31.25 03/04/2014 2:50 PM EDT Plan of Treatment Not on file Care Teams Staffing Coordinator Relationship Specialty Start Date End Date David Cerna MD [address] [place] [address] PCP - General 11/21/20
--- OUTSIDE RECORDS SUMMARY | 2025-01-28 14:57 | XMS_ITS | Patient Health Record ---
Author Organization [facility] Billing Info Address [address] [place] [address] [place] [address] Care Team Providers Care Folding Rules Printing Machine Operator Name Role Phone Yuniel Jaime Pham Primary Care Provide r BLANCA Reza [phone] Reason For Referral No Information Medications Medication SIG (Take, Route, Frequency, Duration) Notes Start Date End Date Status Glimepiride 4 MG 1 tablet with breakfast or the first main meal of the day Orally Once a day for 30 day(s) Active Invokana 300 MG 1 tablet Orally Once a day for 30 day(s) Active Pravastatin Sodium 40 MG 1 tablet Orally Once a day for 30 day(s) Active Omeprazole 40 MG 1 capsule Orally Once a day Increased by Dr. Bowen Active Levemir Flexpen Acti ve Lisinopril 5 MG 1 tablet Orally Once a day for 30 day(s) Active Novolin R 100 UNIT/ML as directed Injection Active Social History Tobacco Status: Question Answer Notes Patient is a non tobacco user Plan Of Treatment No Information Insurance Providers Payer Name Payer Address Payer Phone Subscriber Number Group Number Insured Name Patient Relationship to Insured Coverage Start Date Coverage End Date [facility] CHOICE PLUS [address] [facility] [place] [id number] Dee Acosta Self - patient is the insured 9 Medical (General) History Medical History History ICD Code Diabetes mellitus COPD Esophageal reflux Hypertension Hyperlipidemia Surgical History Surgery Date(Month/Year) cholecystectomy 1989 hysterectomy 1989 C section 1979 carpal tunnel release
--- OUTSIDE RECORDS SUMMARY | 2025-01-28 14:57 | XMS_ITS | Clinical Summary ---
Author Organization [facility] [place] [address] Care Team Providers Care Steel Plate Printer Name Role Phone Unavailable Primary Care Provider Unavailabl e Social History Tobacco Use Types Packs/Day Years Used Date Smoking Tobacco: Never Assessed Comments Unknown Sex and Gender Information Value Date Recorded Sex Assigned at Not on file Legal Sex Female 7:50 AM EDT Gender Identity Not on file Sexual Orientation Not on file Plan of Treatment Health Maintenance Due Date Last Done Comments Annual Wellness Exam 1957 Hepatitis C Screening 1972 DTaP/TDaP/Td (1 - Tdap) 1973 Cologuard 1999 Colon Cancer Screening 1999 Colonoscopy 1999 FIT 1999 Sigmoidoscopy 1999 Virtual Colonography 1999 Pneumococcal Vaccine 50+ (1 of 1 - PCV) 2004 Zoster (1 of 2) 2004 Bone Density Screening 2019 COVID-19 Vaccine (2023-2 5 season) 2024 Influenza Vaccine (#1) 2025 Hepatitis B Vaccine Aged Out No longe r eligible based on patient's age to complete this topic Meningococcal B Vaccine Aged Out No l onger eligible based on patient's age to complete this topic
--- OUTSIDE RECORDS SUMMARY | 2025-01-28 14:57 | XMS_ITS | Data Portability ---
Author Organization [place] - [facility] ADMIN Address [address] [place] [address] Care Team Providers Care Paper Cone Maker Name Role Phone SHANTAL SALAMANCA Referring Provider Assessment No assessment recorded. Plan of Treatment Reminders Order Date Submit Date Provider Last Modified By Organization Details Last Modified Time Details Appointments OV EST 15 025 02:45PM NORMA GALVAN Not available Not available Not available Lab None record ed. Referral None record ed. Procedures None record ed. Surgeries None record ed. Imaging None record ed. Medication Orders None record ed. Patient TargetsNo targets recorded. Patient InstructionsNo instructions recorded. Reason for Referral None Reported. Results Created Date Observation Date Name Description Value Unit Range Abnormal Flag Note LastModifiedBy Organization Detail LastModifiedTime 05/11/2005/09/2023 audio gram No observ ation record ed. BARCODE Not Available 2022 10:18:52 10/26/19 24 11/03/2023 medic al clear ance* No observ ation record ed. [email or web address] Not Available 2023 15:20:09 10/26/19 24 medic al clear ance* No observ ation record ed. [email or web address] Not Available 2023 10:27:29 03/24/20 24 03/24/2024 imagi ng/di agnos tic resul t No observ ation record ed. [facility] [address], [place], [address], 03/30/2024 16:42:01 Result Notes None recorded. Problems Name Problem SNOMED Code Status Onset Date Resolution Date Notes Provider Name and Address Organization Details Recorded Time Sensorineural hearing loss 01440371 Active 2022 TAZ VOGEL, AUD [address] [facility], [place], [address] , [place] - [facility] - [place] & [place] 3 10:06:30 Problem Notes None recorded. Medical Equipment None Reported. Medications Name Sig Start Date Stop Date Status Note LastModified by Organization Details LastModified Time mucus er 600mg tab TAKE 1 TO 2 TABLETS BY MOUTH EVERY 12 HOURS FOR 10 DAYS active Not Available Not Available Not Available losartan 50 mg tablet active Not Available Not Available No t Available promethazine -DM 6.25 mg-15 mg/5 mL oral syrup TAKE 5 ML BY MOUTH EVERY 6 HOURS NEEDED FOR COUGH TAKE AT BEDTIME FOR 10 DAYS active Not Available Not Available Not Available albuterol sulfate 2.5 mg/3 mL (0.083 %) solution for nebulization USE 1 VIAL IN NEBULIZER EVERY 6 HOURS NEEDED FOR DYSPNEA active Not Available Not Available No t Available trazodone 50 mg tablet TAKE 1 TABLET BY MOUTH ONCE DAILY AT NIGHT FOR INSOMNIA active Not Available Not Available No t Available azithromycin 250 mg tablet TAKE 2 TABLETS BY MOUTH ON DAY 1, AND THEN TAKE 1 TABLET BY MOUTH ONCE A DAY ON DAY 2 THROUGH DAY 5 active Not Available Not Available No t Available pravastatin 40 mg tablet active Not Available Not Available Not Available benzonatate 200 mg capsule active Not Available Not Available Not Available prednisone 20 mg tablet active Not Available Not Available Not Available meloxicam 7.5 mg tablet TAKE 1 TABLET BY MOUTH ONCE DAILY active Not Available Not Available No t Available terbinafine HCl 250 mg tablet TAKE 1 TABLET BY MOUTH ONCE DAILY FOR 90 DAYS active Not Available Not Available No t Available neomycin-jeff ymyxin-dexam eth 3.5 mg/mL-10,000 unit/mL-0.1% eye drops active Not Available Not Available No t Available glimepiride 4 mg tablet active Not Available Not Available Not Available promethazine 25 mg tablet active Not Available Not Available Not Available gabapentin 300 mg capsule active Not Available Not Available Not Available montelukast 10 mg tablet active Not Available Not Available Not Available lisinopril 5 mg tablet active Not Available Not Available No t Available albuterol sulfate HFA 90 mcg/actuatio n aerosol inhaler active Not Available Not Available Not Available bupropion HCl XL 150 mg 24 hr tablet, extended release active Not Available Not Available Not Available escitalopram 5 mg tablet TAKE 1 TABLET BY MOUTH ONCE DAILY active Not Available Not Available No t Available Humalog KwikPen (U-100) Insulin 100 unit/mL subcutaneous active Not Available Not Available Not Available Jardiance 25 mg tablet TAKE 1 TABLET BY MOUTH ONCE DAILY IN THE MORNING FOR 90 DAYS active Not Available Not Available Not Available Tresiba FlexTouch U-200 insulin 200 unit/mL (3 mL) subcutaneous pen active Not Available Not Available Not Available Ozempic 1 mg/dose (4 mg/3 mL) subcutaneous pen injector INJECT 1 MG SUBCUTANEOU SLY ONCE A WEEK active Not Available Not Available No t Available Mounjaro 5 mg/0.5 mL subcutaneous pen injector INJECT 1 SYRINGE SUBCUTANEOU SLY ONCE A WEEK active Not Available Not Available No t Available Ozempic 0.25 mg or 0.5 mg (2 mg/3 mL) subcutaneous pen injector INJECT 0.5MG SUBCUTANEOU SLY ONCE A WEEK active Not Available Not Available No t Available Vitals None Recorded Social History None recorded. Functional Status None recorded. Mental Status None recorded. Family History Nothing Reported. Medical History No medical history recorded. Gynecological HistoryNo gynecological history recorded. Obstetrics History GPAL:G 0 P 0 0 0 0 Past Encounters Encounter ID Performer Location Encounter Start Date Encounter Closed Date Diagnosis/Indication Diagnosis SNOMED-CT Code Diagnosis ICD10 Code Diagnosis Note [id number] [facility] GALVAN [facility] [address] [address] 05/11/2023 09:42:57 05/11/2023 10:00:41 Sensorineural hearing loss 23518117 H90.3 [id number] NORMA GALVAN [facility] [address] [address] 10/26/2023 09:52:13 10/26/2023 10:18:20 Sensorineural hearing loss 75855281 H90.3 [id number] NORMA GALVAN [facility] [address] [address] 11/08/2023 15:19:55 11/08/2023 15:24:41 Sensorineural hearing loss 62348549 H90.3 [id number] NORMA GALVAN [facility] [facility], [facility] [address] 01/03/2024 11:19:11 01/03/2024 11:22:40 Sensorineural hearing loss 50165389 H90.3 [id number] NORMA GALVAN [facility] [facility], [facility] [place] [place] [address] 05/16/2024 09:24:47 05/16/2024 09:34:38 Sensorineural hearing loss 90296137 H90.3 Health Concerns Section Related Observation LastModified by Organization Detai ls LastModified Time None Recorded Concern Status LastModified by Organization Details LastModified Time None Recorded Advance Directives Directive None Recorded Payers Insurance Date Sequence Insurance Name Policy Number Policy Higgins Covered Member ID Higgins Member ID Guarantor Name 05/16/2024 [employer] Bee P ATRICIA Dee Acosta 05/16/2024 1 [facility] [id number] Dee Acosta [id number] Dee Acosta 05/16/2024 2 [place] Dee Acosta [id number] Dee Acosta Notes Date Note Type Note Provider Name and Address Organization Details Recorded Time 05/11/2023 text/html Ms. Acosta was s een today for an audiologic evaluation due to long-standing hearing loss bilaterally. She reports difficulty hearing well in background noise and at work. She denies tinnitus, dizziness, drainage, aural fullness/pressure, and excessive noise exposure. Otoscopic inspection was unremarkable bilaterally. Audiometric testing revealed a mild, sloping to severe, mid through high freq SNHL bilaterally with good word rec scores. 1-Discussed findings with Ms. Acosta. 2-Rec hearing aids bilaterally to improve communication at work. 3-F/u hearing testing as directed, or at least annually. NORMA GALVAN [address] [facility], [place], [address], [facility] - [place] - [place] & [place] 05/11/2023 10:08:25 10/26/2023 text/html Ms. Acosta was s een today for a hearing aid fitting via [facility]. She was fit with Bedloo AI 24 R LAWSON hearing aids bilaterally. She was instructed on proper use, function, and cleaning. F/u prn. TAZ VOGEL, NORMA [address], [place], [address], [facility] & [place] 10/26/2023 10:22:30 11/08/2023 text/html Patient was seen today for a hearing aid service. Cleaned and adjusted hearing aids this date. NORMA GALVAN [address], [place], [address], [facility] - [facility] & [place] 11/08/2023 15:34:00 01/03/2024 text/html Patient was seen today for a hearing aid service. Cleaned and adjusted hearing aids this date. NORMA GALVAN [address], [place], [address], [facility] - [facility] & [place] 01/03/2024 11:26:47 05/16/2024 text/html Patient was seen today for a hearing aid service. Cleaned and adjusted hearing aids this date. NORMA GALVAN [address], [place], [address], [facility] & [place] 05/16/2024 09:34:32 OBGyn Episode No OBEpisode recorded.
[2025-01-28 16:02] LABS: Hematocrit 42.4 % (37.0-47.0); Hemoglobin 13.6 g/dL (12.2-16.2); Immature Granulocytes % 0.6 %; Mean Corpuscular HGB Conc 32.1 g/dL (31.8-35.4); Mean Corpuscular Hemoglobin 28.5 pg (27.0-31.2); Mean Corpuscular Volume 88.9 fl (81-99); Nucleated Red Blood Cells % 0 %; Platelet Count 336 K/mm3 (142-424); Red Blood Count 4.77 M/mm3 (4.20-5.40); Red Cell Distribution Width-SD 44.3 fL; White Blood Count 15.5 K/mm3 (4.8-10.8)
[2025-01-28 16:38] LABS: Hemoglobin A1C 9.9 % (4.0-6.0)
[2025-01-28 17:28] LABS: Chloride 95 mmol/L (98-107)
[2025-01-28 17:29] LABS: Albumin Level 4.3 g/dl (3.5-5.0); Potassium 4.1 mmoL/L (3.5-5.1); Sodium 137 mmol/L (136-145)
[2025-01-28 17:31] LABS: Alanine Aminotransferase 12 U/L (12-78); Aspartate Amino Transferase 21 U/L (14-36); Blood Urea Nitrogen 17 mg/dl (7-17); Creatinine,Serum 0.90 mg/dl (0.52-1.04); Estimated Glomerular Filt Rate 62 ml/min (>60); GFR (African American) 75 ML/MIN (>60)
[2025-01-28 17:32] LABS: Albumin/Globulin Ratio 1.1 (1.1-1.8); Alkaline Phosphatase 156 U/L (38-126); Anion Gap 16.1 mEq/L (5-15); Bilirubin,Total 0.8 mg/dl (0.2-1.3); Calcium 9.9 mg/dl (8.4-10.2); Carbon Dioxide 30 mmol/L (22.0-30.0); Globulin 3.8 g/dL (1.3-3.2); Glucose 176 mg/dl (74-100); Magnesium 1.8 mg/dl (1.6-2.3); Total Protein,Serum 8.1 g/dl (6.3-8.2)
[2025-01-28 17:59] LABS: Thyroid Stimulating Hormone 0.86 uIU/mL (0.465-4.68)
== END 2025-01-28 23:59 | disposition home or self-care (01) ==
LOC: LAB 14:56
PROVIDERS: PCP Nurse Practitioner Family; Visit Provider Nurse Practitioner Family
DX: E11.40 Type 2 diabetes mellitus with diabetic neuropathy, unspecified (principal); R55 Syncope and collapse; R06.09 Other forms of dyspnea
CPT/HCPCS: 36415; 80053; 83036; 83735; 84443; 85025; 93225; 93226

== ENCOUNTER 2025-02-06 09:01 | Outpatient (CLI) | payer OTHER, MEDICARE, SELFPAY ==
--- NOTE | 2025-02-06 | CA_ITS ---
APPROVED REPORT Exam: Pharmacologic Technologist: Virginia Amaro Ht: 5 ft 0 in Wt: 163 lbs BSA: 1.71 m2 HR: 76 bpm BP: 131/66 mmHg Stress Test Details Test: Lexiscan HR Resting HR: 76 bpm Max Heart Rate (APMHR): 150.343977 bpm Max HR Achieved: 76 bpm Target HR (85% APMHR): 127.388359 bpm % of APMHR: 50.67 Recovery HR: 66 bpm BP Resting BP: 131.0/66.0 mmHg Max BP: 131.0/66.0 mmHg Recovery BP: 104.0/55.0 mmHg ECG Stress ECG Conclusion Symptoms: Shortness of air Arrhythmias/Ectopy: None ST-T Changes: EKG non-diagnostic - Lexiscan Electronically signed by : Lisa Braswell MD 02/06/2025 20:35:41
--- NOTE | 2025-02-06 | CA_ITS ---
FINAL REPORT TECHNIQUE: Mcwilliams scale, color and spectral doppler images of the bilateral carotid arteries were obtained. CLINICAL HISTORY: Syncope, HTN, Ex-smoker COMPARISON: None FINDINGS: Peak systolic velocity in the right internal carotid artery is 105 cm/sec. The internal carotid to common carotid artery ratio is 1.6. There is no significant carotid artery stenosis and mild plaque formation. The right vertebral artery is normal in direction. Peak systolic velocity in the left internal carotid artery is 86 cm/sec. The internal carotid to common carotid artery ratio is 1.25. There is no significant carotid artery stenosis and mild plaque formation. The left vertebral artery is normal in direction. IMPRESSION: No ultrasound evidence of hemodynamically significant carotid artery stenosis. Normal peak systolic velocities and normal internal to common carotid artery ratios bilaterally. Reviewed, Interpreted and Dictated by Kaci Arteaga MD Transcribed by Avani Kapadia Authenticated and [facility]
--- OUTSIDE RECORDS SUMMARY | 2025-02-06 09:07 | XMS_ITS | Clinical Summary ---
Author Organization Healthcare Address [address] [place] [address] Care Team Providers Care Manager Bridge Name Role Phone David Cerna MD Primary Care Provider +1- [phone] Family History Medical History Relation Name Comments [...] of Treatment Not on file Care Teams Manager Bridge Relationship Specialty Start Date End Date David Cerna MD [address] [place] [id number] PCP - General 11/21/20
--- OUTSIDE RECORDS SUMMARY | 2025-02-06 09:07 | XMS_ITS | Clinical Summary ---
Author Organization [facility] [place] [address] Care Team Providers Care Certified Solid Waste Facility Operator Name Role Phone Unavailable Primary Care Provider [...]
--- OUTSIDE RECORDS SUMMARY | 2025-02-06 09:07 | XMS_ITS | Patient Health Record ---
Author Organization [facility] Billing Info Address [address] [place] [address] [place] [address] Care Team Providers Care Ticket Dispatcher Name Role Phone Yuniel Jaime Pham Primary Care Provide r BLANCA Reza [phone] Reason For Referral No Information Medications Medication [...] Insured Coverage Start Date Coverage End Date [facility] P[facility] CHOICE PLUS [address] [facility] [place] [place] [id number] Dee Acosta Self - patient is the insured 9 Medical (General) History Medical History History ICD Code Diabetes mellitus COPD Esophageal reflux Hypertension Hyperlipidemia Surgical History Surgery Date(Month/Year) cholecystectomy 1989 hysterectomy 1989 C section 1979 carpal tunnel release
--- NOTE | 2025-02-06 09:32 | NM_ITS ---
APPROVED REPORT Exam: Nuclear Stress Test Indication: Syncope, DM, Family history Patient Location: Outpatient Stress Tech: Virginia Amaro MA Tech:Karen Sky, ARRT, RT (R)(N) Ht: 5 ft 0 in Wt: 163 lbs Bra Size: 38B HR: 73 bpm BP: 131/66 mmHg BSA: 1.71 m2 TID: 1.21 History: Syncope, DM, Family history Procedure: Patient received 0.4 mg of intravenous Lexiscan, resting heart rate 73 bpm, resting blood pressure 131/66 mmHg, with Lexiscan maximum heart rate achieved was 78 bpm which is % of the maximum predicted heart rate and blood pressure was 122/57 mmHg. With Lexiscan, patient denied any complaint of chest pain. Cardiac Stress and Resting SPECT Images: Cardiac Stress and Resting SPECT images were obtained using technetium 99m Myoview 29.4 mCi stress and 9.87 mCi at rest. Resting and stress imaging in supine and prone positions demonstrate no evidence of focal fixed or reversible perfusion defects. There is increase in transient ischemic dilatation ratio (TID 1.21), which may be suggestive of possible multivessel disease or balanced ischemia. Gated imaging demonstrates normal global and regional LV systolic function. LVEF is calculated at > 75%. Conclusion: No evidence of focal fixed or reversible perfusion defects. There is increase in transient ischemic dilatation ratio (TID 1.21), which may be suggestive of possible multivessel disease or balanced ischemia. Gated imaging demonstrates normal global and regional LV systolic function. LVEF is calculated at > 75%. Electronically signed by : Lisa Braswell MD 02/06/2025 20:34:50
[2025-02-06] MEDS: SODIUM CHLORIDE 0.9% 10ML SYR (RAD ONLY) 10 ML IV ×2 (13:29)
[2025-02-06] MEDS: ISOTOPE MYOVIEW (PER STUDY) 1 DOSE IV (13:29)
== END 2025-02-06 23:59 | disposition home or self-care (01) ==
LOC: RT 09:03
PROVIDERS: PCP Nurse Practitioner Family; Visit Provider Nurse Practitioner Family
DX: E11.9 Type 2 diabetes mellitus without complications (principal); R94.39 Abnormal result of other cardiovascular function study; R55 Syncope and collapse; R06.09 Other forms of dyspnea; R94.31 Abnormal electrocardiogram [ECG] [EKG]
CPT/HCPCS: 78452; 93016; 93017; 93018; 93880; A9502; J2785

== ENCOUNTER 2025-02-18 09:01 | Outpatient (CLI) | payer OTHER, MEDICARE, SELFPAY ==
--- OUTSIDE RECORDS SUMMARY | 2025-02-18 09:04 | XMS_ITS | Patient Health Record ---
Author Organization [facility] Billing Info Address [address] [place] [address] [place] [address] Care Team Providers Care Insulation Helper Name Role Phone Yuniel Jaime Pham Primary Care Provide r BLANCA Reza [phone] Reason For Referral No Information Medications Medication [...] Insured Coverage Start Date Coverage End Date [facility] P[facility] CHOICE PLUS [id number] [facility] [place] [id number] Dee Acosta Self - patient is the insured 9 Medical (General) History Medical History History ICD Code Diabetes mellitus COPD Esophageal reflux Hypertension Hyperlipidemia Surgical History Surgery Date(Month/Year) cholecystectomy 1989 hysterectomy 1989 C section 1979 carpal tunnel release
--- OUTSIDE RECORDS SUMMARY | 2025-02-18 09:04 | XMS_ITS | Clinical Summary ---
Author Organization [facility] [place] [address] Care Team Providers Care Motor Bus Driver Name Role Phone Unavailable Primary Care Provider [...]
--- OUTSIDE RECORDS SUMMARY | 2025-02-18 09:04 | XMS_ITS | Clinical Summary ---
Author Organization Healthcare Address [address] [place] [address] Care Team Providers Care Lead Network Engineer Name Role Phone David Cerna MD Primary Care Provider +1- [phone] Family History Medical History Relation Name Comments [...] of Treatment Not on file Care Teams Lead Network Engineer Relationship Specialty Start Date End Date David Cerna MD [address] [place] [id number] PCP - General 11/21/20
[2025-02-18 09:23] VITALS: BMI 32.5
[2025-02-18] MEDS: IVABRADINE HCL 7.5MG TABLET PO (09:24)
[2025-02-18] MEDS: METOPROLOL TARTRATE 50MG TABLET PO ×2 (09:25→10:16)
[2025-02-18 09:27] VITALS: BP 160/84; PULSE 82; RESP 17; O2SAT 96
[2025-02-18 10:37] VITALS: BP 137/97; PULSE 77; RESP 16; O2SAT 96
[2025-02-18] MEDS: NITROGLYCERIN 0.4MG SL TABLET SL (10:37)
[2025-02-18 10:40] VITALS: BP 133/76; PULSE 77; RESP 18; O2SAT 94
[2025-02-18 10:43] VITALS: BP 114/76; PULSE 76; RESP 16; O2SAT 95
[2025-02-18] MEDS: METOPROLOL TARTRATE 5MG/5ML VIAL 5 MG IV (10:43)
[2025-02-18] MEDS: 0.9 % SODIUM CHLORIDE 50 ML VIAL IV (10:46)
[2025-02-18] MEDS: SODIUM CHLORIDE 0.9% 10ML SYR (RAD ONLY) 10 ML IV (10:47)
[2025-02-18] MEDS: IOPAMIDOL-370 (76%);100ML BOTTLE 85 ML IV (10:47)
[2025-02-18 11:00] VITALS: BP 127/83; PULSE 75; RESP 16; O2SAT 98
== END 2025-02-18 11:00 | disposition home or self-care (01) ==
PROVIDERS: PCP Nurse Practitioner Family; Visit Provider Internal Medicine Adolescent Medicine
DX: I25.10 Atherosclerotic heart disease of native coronary artery without angina pectoris (principal); R55 Syncope and collapse
CPT/HCPCS: 75574; Q9967

== ENCOUNTER 2025-02-27 13:30 | Outpatient (CLI) | payer OTHER, SELFPAY ==
--- OUTSIDE RECORDS SUMMARY | 2025-02-18 14:40 | XMS_ITS | Encounter Summary ---
Author Organization [facility] Address [address] [place] [address] Care Team Providers Care Behavioral Therapist Name Role Phone David Cerna MD Primary Care Provider [phone] Encounter Details Date Type Department Care Team (Latest Contact Info) Description 02/18/2025 2:40 PM EDT Ancillary Procedure [facility] [address] [place] [address] Recurrent syncope Social History Tobacco Use Types Packs/Day Years Used Date Smoking Tobacco: Every Day Alcohol Use Standard Drinks/Week Comments No 0 (1 standard drink = 0.6 oz pur e alcohol) Comments Unknown Sex and Gender Information Value Date Recorded Sex Assigned at Not on file Legal Sex Female 6:35 PM EDT Gender Identity Not on file Sexual Orientation Not on file documented as of this encounter Plan of Treatment Not on file documented as of this encounter Procedures Procedure Name Priority Date/Time Associated Diagnosis Comments CT ANGIO CARDIAC CORONARY ARTERIES Routine 02/18/2025 2:37 PM EDT Recurrent syncope documented in this encounter Results * CT Angio Cardiac Coronary Arteries (02/18/2025 2:37 PM EDT) Anatomical Region Laterality Modality Heart Computed Tomogra phy Impressions 02/18/2025 6:11 PM EDT 1. Severe coronary calcification with an Agatston score = 867 using the AJ-130 method, which represents 96 percentile when matched for age, gender and ethnicity. Vascular age is 87 years. 2. There is at least moderate stenosis in the LAD and LCx. There is motion in the RCA making it non-diagnostic. 3. CAD-RADS N: Management recommendations: Additional or alternative evaluation may be needed. 4. No significant non coronary cardiac findings in particular normal cardiac chambers, non-coronary vessels in the field of view and unremarkable pericardium. 5. Extracardiac structures in the field of view are unremarkable. CRITICAL RESULT: No. COMMUNICATION: Per this written report. Drafted by Toy Conway MD on 02/18/2025 5:53 PM Final report signed by Toy Conway MD on 02/18/2025 6:11 PM Narrative 02/18/2025 6:11 PM EDT CLINICAL INDICATION: 69 years Female Symptoms: Chest pain with clinical features suggesting myocardial ischemia TECHNIQUE: Procedure Data Image Acquisition: Images were acquired at [facility] in [place], and interpreted at [facility]. A 128-slice MDCT scanner ([employer] View) was used for data acquisition. A non-contrast coronary calcium scan was initially performed. was performed. Bolus tracking in the ascending aorta with a threshold of 180HU. Immediately afterwards, ECG synchronized Cardiac CT was then performed from cardiac base to apex using retrospective gating with ECG tube current modulation. A total of 85 mL Isovue 370mg/mL contrast media was administered at 5 mL/sec followed by a saline flush using a biphasic injection protocol. A tube voltage of 120 kVp was used. The patient received the following medications prior to the Cardiac CT: 150mg of po metoprolol, 15mg of po ivabradine, and 0.4mg sublingual nitroglycerin. The average heart rate at the time of acquisition was 67 bpm (66 bpm to 69 bpm) and regular. Image Reconstruction: Transaxial images were reconstructed at 0.63 mm slice thickness. Data was reviewed interactively on an advanced workstation ([employer] Information) capable of 2 and 3 dimensional displays in all conventional reconstruction formats including multiplanar reformations, maximum intensity projections, curved multiplanar reformations, and volume rendered reconstructions. Selected routine images displaying relevant coronary anatomy and pathology were saved and sent to PACS. Complications: None Technical Quality: Overall image quality is Suboptimal. Coronary motion artifact Coronary artery opacification is Excellent Total DLP (Dose-Length Product): 1446.7mGycm. (20.3 mSv) Please note: The reported value represents the total of one or more individual components during the CT acquisition on this date and at this time, and as such, the same value may appear in more than one CT report depending on the interpreting/reporting physicians. COMPARISON: None. FINDINGS: -CT Coronary Calcium Scoring- LMA= 1 LAD= 310 LCX= 127 RCA= 429 Total calcium score = 867 using the AJ-130 method. This score is in the 96 percentile rank for age and gender, meaning that 4 % of patients of the same age and gender will have a higher score. The total volume score is 659. The calculated vascular age for this patient is 87 years. There is calcification in the aortic wall. -Coronary CT Angiography- Coronary Arteries: The coronaries have normal origin and proximal course. The coronary arterial system is right dominant. Note: Stenosis is reported as maximum percentage diameter stenosis. Stenosis grading is reported using the following scheme. Quantitative Stenosis Grading: CAD-RADS 0: 0% - No visible stenosis CAD-RADS 1: 1-24% - Minimal stenosis CAD-RADS 2: 25-49% - Mild stenosis CAD-RADS 3: 50-69% - Moderate stenosis CAD-RADS 4A: 70-99% - Severe stenosis in 1-2 vessels CAD-RADS 4B: Left main >50%, or 3 vessel >70% CAD-RADS 5: 100% - Occluded Left Main: CAD-RADS 1 The left main bifurcates into the left anterior descending artery and left circumflex artery. There is minimal stenosis with calcified plaque in the LM. LAD and Diagonals: CAD-RADS 3. Large vessel, gives off a diagonal and wraps the apex. There is moderate stenosis with mixed plaque and calcified plaques in the proximal LAD. LCx and Obtuse Marginals: CAD-RADS 3 Large vessel gives off a high OM1, and OM2. There is moderate stenosis with mixed plaque in the proximal LCx, and non- calcified plaque in proximal OM2. RCA: CAD-RADS N Large dominant vessel that gives off RV marginal, PDA and PL branches. There is significant coronary motion artifact rendering parts of the proximal and mid RCA uninterpretable. Distal RCA appears normal. Non Coronary Cardiac Findings: Normal cardiac chamber size. No pericardial thickening or calcification. Normal interatrial and interventricular septum, atrioventricular valves, ventriculo-arterial valves, pulmonary veins and imaged central veins. Central and branch pulmonary arteries in the field of view are unremarkable. There is atherosclerotic disease in the visualized portion of the thoracic aorta. The left ventricular systolic function is visually normal. Extra Cardiac Structures: chronic granulomatous disease. degenerative disc disease Procedure Note Toy Conway MD - 02/18/2025 CLINICAL INDICATION: 69 years Female Symptoms: Chest pain with clinical features suggesting myocardialischemia TECHNIQUE: Procedure Data Image Acquisition: Images were acquired at [facility] in [place], andinterpreted at [facility]. A 128-slice MDCT scanner (ADOP) was used for data acquisition. A non-contrast coronarycalcium scan was initially performed. was performed. Bolus tracking in theascending aorta with a threshold of 180HU. Immediately afterwards, ECGsynchronized Cardiac CT was then performed from cardiac base to apex usingretrospective gating with ECG tube current modulation. A total of 85 mLIsovue 370mg/mL contrast media was administered at 5 mL/sec followed by asaline flush using a biphasic injection protocol. A tube voltage of 120kVp was used. The patient received the following medications prior to the Cardiac CT:150mg of po metoprolol, 15mg of po ivabradine, and 0.4mg sublingualnitroglycerin. The average heart rate at the time of acquisition was 67 bpm (66 bpm to 69bpm) and regular. Image Reconstruction: Transaxial images were reconstructed at 0.63 mm slice thickness. Data wasreviewed interactively on an advanced workstation ([employer] Information) capable of 2and 3 dimensional displays in all conventional reconstruction formatsincluding multiplanar reformations, maximum intensity projections, curvedmultiplanar reformations, and volume rendered reconstructions. Selectedroutine images displaying relevant coronary anatomy and pathology weresaved and sent to PACS. Complications: None Technical Quality: Overall image quality is Suboptimal. Coronary motion artifact Coronary artery opacification is Excellent Total DLP (Dose-Length Product): 1446.7mGycm. (20.3 mSv) Please note: Thereported value represents the total of one or more individual componentsduring the CT acquisition on this date and at this time, and as such, thesame value may appear in more than one CT report depending on theinterpreting/reporting physicians. COMPARISON: None. FINDINGS: -CT Coronary Calcium Scoring- LMA= 1 LAD= 310 LCX= 127 RCA= 429 Total calcium score = 867 using the AJ-130 method. This score is in the 96percentile rank for age and gender, meaning that 4 % of patients of thesame age and gender will have a higher score. The total volume score is659. The calculated vascular age for this patient is 87 years. There is calcification in the aortic wall. -Coronary CT Angiography- Coronary Arteries: The coronaries have normal origin and proximal course. The coronaryarterial system is right dominant. Note: Stenosis is reported as maximum percentage diameter stenosis.Stenosis grading is reported using the following scheme. Quantitative Stenosis Grading: CAD-RADS 0: 0% - No visible stenosis CAD-RADS 1: 1-24% - Minimal stenosis CAD-RADS 2: 25-49% - Mild stenosis CAD-RADS 3: 50-69% - Moderate stenosis CAD-RADS 4A: 70-99% - Severe stenosis in 1-2 vessels CAD-RADS 4B: Left main >50%, or 3 vessel >70% CAD-RADS 5: 100% - Occluded Left Main: CAD-RADS 1 The left main bifurcates into the left anteriordescending artery and left circumflex artery. There is minimal stenosiswith calcified plaque in the LM. LAD and Diagonals: CAD-RADS 3. Large vessel, gives off a diagonal andwraps the apex. There is moderate stenosis with mixed plaque andcalcified plaques in the proximal LAD. LCx and Obtuse Marginals: CAD-RADS 3 Large vessel gives off a high OM1,and OM2. There is moderate stenosis with mixed plaque in the proximalLCx, and non-calcified plaque in proximal OM2. RCA: CAD-RADS N Large dominant vessel that gives off RV marginal, PDA andPL branches. There is significant coronary motion artifact renderingparts of the proximal and mid RCA uninterpretable. Distal RCA appearsnormal. Non Coronary Cardiac Findings: Normal cardiac chamber size. No pericardial thickening or calcification. Normal interatrial and interventricular septum, atrioventricular valves,ventriculo-arterial valves, pulmonary veins and imaged central veins. Central and branch pulmonary arteries in the field of view areunremarkable. There is atherosclerotic disease in the visualized portion of the thoracicaorta. The left ventricular systolic function is visually normal. Extra Cardiac Structures: chronic granulomatous disease. degenerative discdisease IMPRESSION: 1. Severe coronary calcification with an Agatston score = 867 using theAJ-130 method, which represents 96 percentile when matched for age, genderand ethnicity. Vascular age is 87 years. 2. There is at least moderate stenosis in the LAD and LCx. There ismotion in the RCA making it non-diagnostic. 3. CAD-RADS N: Management recommendations: Additional or alternativeevaluation may be needed. 4. No significant non coronary cardiac findings in particular normalcardiac chambers, non-coronary vessels in the field of view andunremarkable pericardium. 5. Extracardiac structures in the field of view are unremarkable. CRITICAL RESULT: No. COMMUNICATION: Per this written report. Drafted by Toy Conway MD on 02/18/2025 5:53 PM Final report signed by Toy Conway MD on 02/18/2025 6:11 PM us Dallas Chen MD IMG CT PROCEDURES Final Resu lt documented in this encounter Visit Diagnoses Diagnosis Recurrent syncope documented in this encounter Care Teams Behavioral Therapist Relationship Specialty Start Date End Date David Cerna MD [address] [place] [address] PCP - General 11/21/20 documented as of this encounter
--- OUTSIDE RECORDS SUMMARY | 2025-02-26 10:45 | XMS_ITS | Encounter Summary ---
Author Organization [facility] Address [address] [place] [address] Care Team Providers Care Bar Waiter/Waitress Name Role Phone Feli Chavez DIANA Primary Care Provid er Reason for Visit * Reason Comments Establish Care Patient reports sync opal episodes. * Consultation (Routine) - Pending Review Specialty Diagnoses / Procedures Referred By Contac t Referred To Contact Cardiology Diagnoses Shortness of breath PASSED OUT Referring, [place] [address] Nomi Cobb MD [address] [place] [address] [address] [place] [address] Phone: tel: fax: Referral ID Status Reason Start Date Expiration Date V isits Requested Visits Authorized Pending Review 02/19/2025 05/21/2026 1 1 Encounter Details Date Type Department Care Team (Late st Contact Info) Description 02/26/2025 10:45 AM EDT Office Visit [facility] CARDIOLOGY [address] [place] [address] [address] [id number] Nomi Cobb MD [address] [facility] [address] [place] [address] 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 (Primary Dx); Syncope and collapse; Hyperlipidemia LDL goal <70 Social History Tobacco Use Types Packs/Day Years Used Date Smoking Tobacco: Former Cigarettes Q uit: 2015 Smokeless Tobacco: Never Tobacco Cessation:Counseling Given: Not Answered Alcohol Use Standard Drinks/Week Comments Yes 0 (1 standard drink = 0.6 oz pur e alcohol) very rare, maybe once year Comments Unknown Sex and Gender Information Value Date Recorded Sex Assigned at Not on file Legal Sex Female 11:36 AM EDT Gender Identity Not on file Sexual Orientation Not on file documented as of this encounter Last Filed Vital Signs Vital Sign Reading Time Taken Comments Blood Pressure 127/69 02/26/2025 10:00 AM EDT Pulse 85 02/26/2025 10:00 AM EDT Temperature - - Respiratory Rate - - Oxygen Saturation - - Inhaled Oxygen Concentration - - Weight 76.3 kg (168 lb 3.2 oz) 02/26/2025 10:00 AM EDT Height 152.4 cm (5') 02/26/2025 10:00 AM EDT Body Mass Index 32.85 02/26/2025 10:00 AM EDT documented in this encounter Progress Notes * Nomi Cobb MD - 02/26/2025 10:45 AM EDTAssociated Problem(s): 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 Coronary Artery Disease (OPTIONAL): Coronary artery disease is worsening. Continue current treatment regimen. Dietary sodium restriction. Weight loss. Cardiac status will be reassessed at the next regular appointment. The patient abnormal CT angiogram and abnormal nuclear Cardiolite study with symptoms of dyspnea onexertion which is angina equivalent would require the evaluation of coronaries with cardiac catheterization. I have discussed with her that option. The patient wants to proceed with it. Will scheduleher for heart catheterization with possibility of angioplasty and stenting.I have discussed with the patient in detail about his cardiac authorization and angioplasty risk, I have explained to him there is risk that includes intubation, dye allergy, dye damage to the kidneys, bleeding, damage to artery, vein and nerve, risk of heart attack, emergency bypass surgery, tamponade, loss of stent, dissection and . Orders: Obtain Informed Consent; Standing Clip Bilateral Groins; Standing Obtain Informed Consent in Pre-Op; Standing Provide Patient With Hydration Protocol Handout; Standing CBC & Differential; Standing Basic Metabolic Panel; Standing ECG 12 Lead Pre-Op / Pre-Procedure; Standing sodium chloride 0.9 % bolus 228.9 mL Case Request Technology Architect: Left Heart Cath; Standing No Solid Food or Milk for 6 Hours Prior to Scheduled Arrival Time for Cardiac Catheterization Nothing by Mouth for 2 Hours prior to Scheduled Arrival Time Clear Liquids Allowed and Encouraged up to 2 hours Prior to Scheduled Arrival Time - Including at Least 28 Ounces Within 3-Hour Window Prior to Scheduled Arrival Time * Nomi Cobb MD - 02/26/2025 10:45 AM EDTAssociated Problem(s): Syncope and collapse The patient's syncopal episode appears to be most likely vasovagal, we may need to do further evaluation with monitoring as well as I advised her to increase her fluid intake and avoid dehydration. She is also on Jardiance which can cause dehydration as well. Orders: Obtain Informed Consent; Standing Clip Bilateral Groins; Standing Obtain Informed Consent in Pre-Op; Standing Provide Patient With Hydration Protocol Handout; Standing CBC & Differential; Standing Basic Metabolic Panel; Standing ECG 12 Lead Pre-Op / Pre-Procedure; Standing sodium chloride 0.9 % bolus 228.9 mL Case Request Technology Architect: Left Heart Cath; Standing No Solid Food or Milk for 6 Hours Prior to Scheduled Arrival Time for Cardiac Catheterization Nothing by Mouth for 2 Hours prior to Scheduled Arrival Time Clear Liquids Allowed and Encouraged up to 2 hours Prior to Scheduled Arrival Time - Including at Least 28 Ounces Within 3-Hour Window Prior to Scheduled Arrival Time * Nomi Cobb MD - 02/26/2025 10:45 AM EDTAssociated Problem(s): Hyperlipidemia LDL goal <70 Lipid abnormalities are we will change to Lipitor. Plan: Continue same medication/s without change. Discussed medication dosage, use, side effects, and goals of treatment in detail. Counseled patient on lifestyle modifications to help control hyperlipidemia. Advised patient to exercise for 150 minutes weekly. (30 minute brisk walk, 5 days a week for example) Patient Treatment Goals: LDL goal is less than 55 Followup at the next regular appointment. The patient is on pravastatin we would recommend switching to atorvastatin 80 mg once a day. Orders: Obtain Informed Consent; Standing Clip Bilateral Groins; Standing Obtain Informed Consent in Pre-Op; Standing Provide Patient With Hydration Protocol Handout; Standing CBC & Differential; Standing Basic Metabolic Panel; Standing ECG 12 Lead Pre-Op / Pre-Procedure; Standing sodium chloride 0.9 % bolus 228.9 mL Case Request Technology Architect: Left Heart Cath; Standing No Solid Food or Milk for 6 Hours Prior to Scheduled Arrival Time for Cardiac Catheterization Nothing by Mouth for 2 Hours prior to Scheduled Arrival Time Clear Liquids Allowed and Encouraged up to 2 hours Prior to Scheduled Arrival Time - Including at Least 28 Ounces Within 3-Hour Window Prior to Scheduled Arrival Time * Nomi Cobb MD - 02/26/2025 10:45 AM EDTAddended by: NOMI COBB on: 02/26/2025 11:08 AM Modules accepted: Orders * Nomi Cobb MD - 02/26/2025 10:45 AM EDTAssociated Order(s): ECG 12 Lead Post-Procedure Diagnose(s): Syncope and collapse; Hyperlipidemia LDL goal <70; 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 Cardiology New Patient Note Name: Dee Acosta : 1955 PCP: Feli Chavez, DIANA Date: 02/26/2025 Department: [facility] CARDIOLOGY [address] [facility] [address] [facility] [address] Chief Complaint Patient presents with Establish Care Patient reports syncopal episodes. Problem list: Coronary artery disease CT angiogram dated 02/18/2025 severe coronary calcification with calcium score of 867. There is at least moderate stenosis in the LAD and circumflex coronary artery. The right coronary artery cannot be visible due to motion artifact. Lexiscan dated 02/06/2025 no evidence of fixed or reversible perfusion defect. There is increased and transient ischemic dilatation ratio 3 times daily 1.21. Which is suggestive of possible multivessel coronary artery disease or left main disease. The ejection fraction is 75%. Hyperlipidemia Diabetes mellitus type 2 Subjective History of Present Illness Dee Acosta is a 69 y.o. female who presents today as a new patient. Patient states passed out twice once in December and then a week later.First time was standing and unloading truck, was hot, got dizzy and passed out, second time was rushing to bathroom and passed out while coming out of the bathroom. Patient states has no chest pain, patient states that she does get short of breath, going to the parking lot with also make her short of breath. The patient saw Elaina Chavez, her nurse practitioner who ordered CT angiogram, the CT angiogram results came back abnormal revealing a calcium score of 867 with moderate stenosis in the LAD and circumflex the right coronary artery was not visible because of the artifacts. The patient is here for further evaluation. History reviewed. No pertinent past medical history. History reviewed. No pertinent surgical history. History reviewed. No pertinent family history. Social History Socioeconomic History Marital status: Tobacco Use Smoking status: Former Current packs/day: 0.00 Types: Cigarettes Quit date: 2014 Years since quittin.6 Smokeless tobacco: Never Vaping Use Vaping status: Never Used Substance and Sexual Activity Alcohol use: Yes Comment: very rare, maybe once year Allergies Allergen Reactions Silver Nitrate Other (See Comments) Makes burn worse, Current Outpatient Medications: Rklyxpihq-Xogmfleumjc-Htk D (OSTEO BI-FLEX ONE PER DAY PO), Take 1 tablet by mouth Daily., Disp: , Rfl: escitalopram (LEXAPRO) 10 MG tablet, Take 1 tablet by mouth Daily., Disp: , Rfl: gabapentin (NEURONTIN) 300 MG capsule, Take 1 capsule by mouth Daily., Disp: , Rfl: Insulin Lispro (humaLOG) 100 UNIT/ML injection, Inject 14 Units under the skin into the appropriatearea as directed 3 (Three) Times a Day Before Meals., Disp: , Rfl: Jardiance 25 MG tablet tablet, Take 1 tablet by mouth Daily., Disp: , Rfl: Multiple Vitamins-Minerals (PRESERVISION AREDS 2 PO), Take 1 tablet by mouth 2 (Two) Times a Day., Disp: , Rfl: Nutritional Supplements (EQUATE PO), Take 1 tablet by mouth Every Night., Disp: , Rfl: pantoprazole (PROTONIX) 40 MG EC tablet, Take 1 tablet by mouth Daily., Disp: , Rfl: pravastatin (PRAVACHOL) 40 MG tablet, Take 1 tablet by mouth Daily., Disp: , Rfl: Tresiba FlexTouch 200 UNIT/ML solution pen-injector pen injection, Inject 24 Units under the skin into the appropriate area as directed Daily. (Patient taking differently: Inject 84 Units under the skin into the appropriate area as directed Daily.), Disp: , Rfl: Review of Systems All other systems reviewed and are negative. Objective Vital Signs: BP 127/69 (BP Location: Left arm, Patient Position: Sitting) Pulse 85 Ht 152.4 cm (60 ) Wt 76.3 kg (168 lb 3.2 oz) BMI 32.85 kg/m?? Estimated body mass index is 32.85 kg/m?? as calculated from the following: Height as of this encounter: 152.4 cm (60 ). Weight as of this encounter: 76.3 kg (168 lb 3.2 oz). BMI is >= 30 and <35. (Class 1 Obesity). The following options were offered after discussion;: exercise counseling/recommendations Cardiovascular: PMI at left midclavicular line. Normal rate. Regular rhythm. Normal S1. Normal S2. Murmurs: There is no murmur. No gallop. No click. No rub. Pulses: Intact distal pulses. Edema: Peripheral edema absent. ECG 12 Lead Date/Time: 02/26/2025 11:06 AM Performed by: Nomi Cobb MD Authorized by: Nomi Cobb MD Comparison: not compared with previous ECG Previous ECG: no previous ECG available Rhythm: sinus rhythm QRS axis: right Clinical impression: non-specific ECG Data Review: No results found for: GLUCOSE , BUN , CREATININE , EGFRIFNONA , EGFRIFAFRI , BCR , K , CO2 , CALCIUM , ALBUMIN , BILIRUBIN , AST , ALT No results found for: CHOL , CHLPL , TRIG , HDL , LDL , LDLDIRECT No results found for: WBC , RBC , HGB , HCT , MCV , PLT No results found for: TSH No results found for: HGBA1C No results found for: INR , PROTIME Labs reviewed dated 01/28/2025 CBC okay, BMP okay, hemoglobin A1c 9.9 Assessment and Plan Assessment & Plan 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 Coronary Artery Disease (OPTIONAL): Coronary artery disease is worsening. Continue current treatment regimen. Dietary sodium restriction. Weight loss. Cardiac status will be reassessed at the next regular appointment. The patient abnormal CT angiogram and abnormal nuclear Cardiolite study with symptoms of dyspnea onexertion which is angina equivalent would require the evaluation of coronaries with cardiac catheterization. I have discussed with her that option. The patient wants to proceed with it. Will scheduleher for heart catheterization with possibility of angioplasty and stenting.I have discussed with the patient in detail about his cardiac authorization and angioplasty risk, I have explained to him there is risk that includes intubation, dye allergy, dye damage to the kidneys, bleeding, damage to artery, vein and nerve, risk of heart attack, emergency bypass surgery, tamponade, loss of stent, dissection and . Orders: Obtain Informed Consent; Standing Clip Bilateral Groins; Standing Obtain Informed Consent in Pre-Op; Standing Provide Patient With Hydration Protocol Handout; Standing CBC & Differential; Standing Basic Metabolic Panel; Standing ECG 12 Lead Pre-Op / Pre-Procedure; Standing sodium chloride 0.9 % bolus 228.9 mL Case Request Technology Architect: Left Heart Cath; Standing No Solid Food or Milk for 6 Hours Prior to Scheduled Arrival Time for Cardiac Catheterization Nothing by Mouth for 2 Hours prior to Scheduled Arrival Time Clear Liquids Allowed and Encouraged up to 2 hours Prior to Scheduled Arrival Time - Including at Least 28 Ounces Within 3-Hour Window Prior to Scheduled Arrival Time Syncope and collapse The patient's syncopal episode appears to be most likely vasovagal, we may need to do further evaluation with monitoring as well as I advised her to increase her fluid intake and avoid dehydration. She is also on Jardiance which can cause dehydration as well. Orders: Obtain Informed Consent; Standing Clip Bilateral Groins; Standing Obtain Informed Consent in Pre-Op; Standing Provide Patient With Hydration Protocol Handout; Standing CBC & Differential; Standing Basic Metabolic Panel; Standing ECG 12 Lead Pre-Op / Pre-Procedure; Standing sodium chloride 0.9 % bolus 228.9 mL Case Request Technology Architect: Left Heart Cath; Standing No Solid Food or Milk for 6 Hours Prior to Scheduled Arrival Time for Cardiac Catheterization Nothing by Mouth for 2 Hours prior to Scheduled Arrival Time Clear Liquids Allowed and Encouraged up to 2 hours Prior to Scheduled Arrival Time - Including at Least 28 Ounces Within 3-Hour Window Prior to Scheduled Arrival Time Hyperlipidemia LDL goal <70 Lipid abnormalities are we will change to Lipitor. Plan: Continue same medication/s without change. Discussed medication dosage, use, side effects, and goals of treatment in detail. Counseled patient on lifestyle modifications to help control hyperlipidemia. Advised patient to exercise for 150 minutes weekly. (30 minute brisk walk, 5 days a week for example) Patient Treatment Goals: LDL goal is less than 55 Followup at the next regular appointment. The patient is on pravastatin we would recommend switching to atorvastatin 80 mg once a day. Orders: Obtain Informed Consent; Standing Clip Bilateral Groins; Standing Obtain Informed Consent in Pre-Op; Standing Provide Patient With Hydration Protocol Handout; Standing CBC & Differential; Standing Basic Metabolic Panel; Standing ECG 12 Lead Pre-Op / Pre-Procedure; Standing sodium chloride 0.9 % bolus 228.9 mL Case Request Technology Architect: Left Heart Cath; Standing No Solid Food or Milk for 6 Hours Prior to Scheduled Arrival Time for Cardiac Catheterization Nothing by Mouth for 2 Hours prior to Scheduled Arrival Time Clear Liquids Allowed and Encouraged up to 2 hours Prior to Scheduled Arrival Time - Including at Least 28 Ounces Within 3-Hour Window Prior to Scheduled Arrival Time Discussed with the patient compliance with medical management and follow-up. Follow Up No follow-ups on file. Call if you have any significant symptoms or go to the [facility] Emergency room if possible. Nomi Cobb MD, [facility]. [facility] Part of this note may be an electronic net programmer analyst/translation of spoken language to printed textusing the Main[employer]ation System. 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; Syncope and collapse; Hyperlipidemia LDL goal <70 03/13/2025 2:00 PM EDT - 03/13/2025 3:00 PM EDT Surgery [facility] [address] [place] [address] Nomi Cobb MD [address] [facility] [address] [place] [address] Left Heart Cath [92253 (CPT )] Scheduled Orders Name Type Priority Associated Diagnoses Orde r Schedule Basic Metabolic Panel Lab Routine 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 Syncope and collapse Hyperlipidemia LDL goal <70 Expected: 03/28/2025 (Approximate), Expires: 02/25/2026 CBC & Differential Lab Panel Routine 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 Syncope and collapse Hyperlipidemia LDL goal <70 Expected: 03/28/2025 (Approximate), Expires: 02/25/2026 Lipid Panel Lab Routine 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 Syncope and collapse Hyperlipidemia LDL goal <70 Expected: 03/28/2025 (Approximate), Expires: 02/25/2026 documented as of this encounter Procedures Procedure Name Priority Date/Time Associated Diagnosis Comments ECG 12-LEAD Routine 02/26/2025 11:06 AM EDT 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 Syncope and collapse Hyperlipidemia LDL goal <70 documented in this encounter Results * ECG 12-LEAD (02/26/2025 11:06 AM EDT) Narrative Nomi Cobb MD - 02/26/2025 11:06 AM EDT Nomi Cobb MD 02/26/2025 11:07 AM ECG 12 Lead Date/Time: 02/26/2025 11:06 AM Performed by: Nomi Cobb MD Authorized by: Nomi Cobb MD Comparison: not compared with previous ECG Previous ECG: no previous ECG available Rhythm: sinus rhythm QRS axis: right Clinical impression: non-specific ECG Nomi Cobb MD ECG ORDERABLES Final Result documented in this encounter Visit Diagnoses Diagnosis 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- Primary Syncope and collapse Hyperlipidemia LDL goal <70 Other and unspecified hyperlipidemia 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
--- OUTSIDE RECORDS SUMMARY | 2025-02-27 13:35 | XMS_ITS | Clinical Summary ---
Author Organization [facility] [address] Care Team Providers Care Active Directory Systems Administrator Name Role Phone Unavailable Primary Care Provider [...]
--- OUTSIDE RECORDS SUMMARY | 2025-02-27 13:35 | XMS_ITS | Encounter Summary ---
Author Organization [facility] Address [address] [id number] Care Team Providers Care Safety Representative Name Role Phone Feli Chavez DIANA Primary Care Provid er Encounter Details Date Type Department Care Team (Late st Contact Info) Description 02/26/2025 Telephone [facility] CARDIOLOGY [address] [facility] [address] [address] Nomi Huntley MD [address] [facility] [address] [place] [address] Social History Tobacco Use Types Packs/Day Years Used Date Smoking Tobacco: Former Cigarettes Q uit: 2014 Smokeless Tobacco: Never Alcohol Use Standard Drinks/Week Comments Yes 0 (1 standard drink = 0.6 oz pur e alcohol) very rare, maybe once year Comments Unknown Sex and Gender Information Value Date Recorded Sex Assigned at Not on file Legal Sex Female 11:36 AM EDT Gender Identity Not on file Sexual Orientation Not on file documented as of this encounter Miscellaneous Notes * Telephone Encounter - Karen Arboleda APRN - 02/26/2025 2:49 PM EDT Sent. Copy was also printed to be sent to patient. * Telephone Encounter - Natali Harding MA - 02/26/2025 2:[address] Huntley she can do light work. Can we get this written? * Telephone Encounter - Karen Arboleda APRN - 02/26/2025 11:39 AM EDT Probably will want to wait til after heart cath before returning to work. Please discuss with Yuko as he saw her today & I was not in the visit. * Telephone Encounter - Sharon Negron RegSched Rep - 02/26/2025 11:18 AM EDT While at checkout, Pt wanted to know if Dr. Huntley would release her to go back to work before or wait until the Heart Cath has been completed. If so, Would you please fax return to work letter to her PCP, Feli Chavez. KETTLE OPERATOR HEAD at [phone]? documented in this encounter Plan of Treatment Upcoming Encounters Date Type Department Care Team (Latest Contact Info) Description 03/13/2025 2:00 PM EDT Hospital Encounter [facility] [address] [place] [address] Nomi Huntley MD [address] [facility] [address] [place] [address] Coronary artery disease involving [place] coronary artery of [place]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; Syncope and collapse; Hyperlipidemia LDL goal <70 03/13/2025 2:00 PM EDT - 03/13/2025 3:00 PM EDT Surgery [facility] TE[facility]NOLOG[facility] [address] [place] [address] Nomi Huntley MD [address] [facility] [address] [place], [place] [id number] Left Heart Cath [[id number] (CPT )] documented as of this encounter Visit Diagnoses Not on filedocumented in this encounter Care Teams Safety Representative Relationship Specialty Start Date End Date Feli Chavez APRN [address] [facility] [address] [place] [address] PCP - General Family Medicine 02/19/25 documented as of this encounter
--- OUTSIDE RECORDS SUMMARY | 2025-02-27 13:35 | XMS_ITS | Clinical Summary ---
Author Organization Healthcare Address [address] [place] [address] Care Team Providers Care Custom Motorcycle Painter Name Role Phone David Cerna MD Primary Care Provider [phone]- [phone] Encounters Date Type Department Care Team Description 02/18/2025 2:40 PM EDT Ancillary Procedure [place] [id number] [place] [facility] [place] [address] [place] [address] Recurrent syncope from Last 3 Months Family History Medical History Relation Name Comments [...] 03/04/2014 2:50 PM EDT Plan of Treatment Health Maintenance Due Date Last Done Comments [facility]-Bone Density Scan 1954 [facility]-Depression Screening 1954 [facility]-Infant/Child/Adol SDOH Screenings 1954 [facility]- SDOH Screenings 1972 [facility]-Adult SDOH Screenings 1972 CT Colonography 1999 Colonoscopy 1999 FIT-DNA 1999 FIT 1999 FOBT 1999 Sigmoidoscopy 1999 [facility]-Colorectal Cancer Screening 1999 [facility]-Zoster Vaccines (1 of 2) 2004 [id number] Vaccine (1 - season) 2024 [facility]-Influenza Vaccine (#1) 03/11/202503/17, 06/17/2022, 05/12/2020 [facility]-RSV Vaccine: 60+ Years o r (1 - 1-dose 75+ series) 2029 [facility]-DTaP,Tdap,and Td Vaccine s (3 - Td or Tdap) 05/12/2034 05/12/2024, 03/06/2024 [facility]-Pneumococcal Vaccine: 50 + Years Completed 06/17/2022, 09/19/2021 HPV Vaccines Aged Out No longer eligi ble based on patient's age to complete this topic [facility]-HIB Vaccines Aged Out No longer e ligible based on patient's age to complete this topic [facility]-Hepatitis A Vaccines Aged Out No longer eligible based on patient's age to complete this topic [facility]-IPV Vaccines Aged Out No longer e ligible based on patient's age to complete this topic [facility]-Rotavirus Vaccines Aged Out No lo nger eligible based on patient's age to complete this topic Procedures Procedure Name Priority Date/Time Associated Diagnosis Comments CT ANGIO CARDIAC CORONARY ARTERIES Routine 02/18/2025 2:37 PM EDT Recurrent syncope from Last 3 Months Results * CT Angio Cardiac Coronary Arteries [...] Data Image Acquisition: Images were acquired at [facility] in [place], and interpreted at [facility]. A 128-slice MDCT scanner (Gigi Hilla View) was used for data acquisition. A [...] was reviewed interactively on an advanced workstation ([email or web address]) capable of 2 and 3 dimensional displays [...] Data Image Acquisition: Images were acquired at [facility] in [place], andinterpreted at [facility]. A 128-slice MDCT scanner ([employer]) was used for data acquisition. A non-contrast [...] Data wasreviewed interactively on an advanced workstation ([email or web address]) capable of 2and 3 dimensional displays in [...] Toy Conway MD on 02/18/2025 6:11 PM Dallas Chen MD IMG CT PROCEDURES Final Resu lt from Last 3 Mon[place] [address] Care Teams Custom Motorcycle Painter Relationship Specialty Start Date End Date David Cerna MD [address] [place] [address] [facility] - General 11/21/20
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
--- OUTSIDE RECORDS SUMMARY | 2025-02-27 13:35 | XMS_ITS | Encounter Summary ---
Author Organization [facility] Address [address] [place] [id number] Care Team Providers Care Liquefied Petroleum Gasfitter Name Role Phone Feli Chavez APRN Primary Care Provid er Encounter Details Date Type Department Care Team (Latest Contact Info) Description 02/26/2025 Travel Social History Tobacco Use Types Packs/Day Years [...] as of this encounter Plan of Treatment Upcoming Encounters Date Type Department Care Team (Latest Contact Info) Description 03/13/2025 2:00 PM EDT Hospital Encounter [facility] [address] [place] [address] Nomi Huntley MD [address] [facility] [address] [place] [address] Coronary artery disease involving [place] coronary artery of [place]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; Syncope and collapse; Hyperlipidemia LDL goal <70 03/13/2025 2:00 PM EDT - 03/13/2025 3:00 PM EDT Surgery [facility] [employer] [facility] [address] [place] [address] Nomi Huntley MD [address] [facility] [address] [place] [address] Left Heart Cath [41453 (CPT )] documented as of this encounter Visit Diagnoses Not on filedocumented in this encounter Care Teams Liquefied Petroleum Gasfitter Relationship Specialty Start Date End Date Feli Chavez APRN [address] [facility] [address] [place] [address] PCP - General Family Medicine 02/19/25 documented as of this encounter
[2025-02-27 14:29] LABS: Hematocrit 41.4 % (37.0-47.0); Hemoglobin 13.3 g/dL (12.2-16.2); Immature Granulocytes % 0.6 %; Mean Corpuscular HGB Conc 32.1 g/dL (31.8-35.4); Mean Corpuscular Hemoglobin 27.8 pg (27.0-31.2); Mean Corpuscular Volume 86.6 fl (81-99); Nucleated Red Blood Cells % 0 %; Platelet Count 276 K/mm3 (142-424); Red Blood Count 4.78 M/mm3 (4.20-5.40); Red Cell Distribution Width-SD 42.6 fL; White Blood Count 12.2 K/mm3 (4.8-10.8)
== END 2025-02-27 23:59 | disposition home or self-care (01) ==
LOC: LAB 13:31
PROVIDERS: PCP Nurse Practitioner Family; Visit Provider Internal Medicine Medical Oncology
DX: D72.829 Elevated white blood cell count, unspecified (principal)
CPT/HCPCS: 36415; 85025

== ENCOUNTER 2025-04-29 17:35 | Emergency (ER) | payer OTHER, SELFPAY ==
[2025-04-29 17:31] VITALS: BP 109/57; PULSE 77; RESP 18; TEMP 36.6; O2SAT 99; BMI 33.6
--- NOTE | 2025-04-29 17:36 | PC.NURSE ---
DR PALUMBO AT BEDSIDE FOR ASSESSMENT, AFTER EXAM STATES PT DOES NOT NEED C-COLLAR. PT DENIES NECK PAIN OR INJURY
--- NOTE | 2025-04-29 17:50 | CT_ITS ---
PROCEDURE INFORMATION: Exam: CT Head Without Contrast Exam date and time: 04/29/2025 7:06 PM Age: 70 years old Clinical indication: Injury or trauma; Fall; Blunt trauma (contusions or hematomas); Additional info: Fall on blood thinners TECHNIQUE: Imaging protocol: Computed tomography of the head without contrast. Radiation optimization: All CT scans at this facility use at least one of these dose optimization techniques: automated exposure control; mA and/or kV adjustment per patient size (includes targeted exams where dose is matched to clinical indication); or iterative reconstruction. COMPARISON: US CA CAROTID DUPLEX BI 02/06/2025 9:14 AM FINDINGS: Brain: Periventricular and subcortical small vessel ischemic changes appear chronic. Mild atrophy associated. No acute hemorrhage, mass effect, midline shift, or extra-axial fluid collection. Cerebral ventricles: No ventriculomegaly. Paranasal sinuses: Visualized sinuses are unremarkable. No fluid levels. Mastoid air cells: Visualized mastoid air cells are well aerated. Bones: Unremarkable. No acute fracture. Soft tissues: Unremarkable. IMPRESSION: No acute traumatic intracranial abnormality identified.
--- NOTE | 2025-04-29 17:50 | CT_ITS ---
PROCEDURE INFORMATION: Exam: CTA Chest With Contrast Exam date and time: 04/29/2025 7:10 PM Age: 70 years old Clinical indication: Other: Syncope TECHNIQUE: Imaging protocol: Computed tomographic angiography of the chest with contrast. Exam focused on the arteries. 3D rendering (Not supervised by radiologist): MIP and/or 3D reconstructed images were created by the technologist. Radiation optimization: All CT scans at this facility use at least one of these dose optimization techniques: automated exposure control; mA and/or kV adjustment per patient size (includes targeted exams where dose is matched to clinical indication); or iterative reconstruction. Contrast material: ISOVUE 370; Contrast volume: 70 ml; Contrast route: INTRAVENOUS (IV); COMPARISON: CT LUNG SCREENING 03/27/2024 9:53 AM FINDINGS: Pulmonary arteries: Normal. No pulmonary emboli. Aorta: Unremarkable. No aortic aneurysm. No aortic dissection. Lungs: Information multiple pulmonary granulomas. Pleural spaces: Unremarkable. No pneumothorax. No pleural effusion. Heart: Unremarkable. No cardiomegaly. No pericardial effusion. Coronary arteries: Moderate coronary calcium. Lymph nodes: Calcified bilateral hilar lymph nodes. Bones/joints: Unremarkable. No acute fracture. Soft tissues: Cholecystectomy. IMPRESSION: 1. No evidence of pulmonary embolus. 2. Coronary atherosclerosis. 3. Multiple pulmonary granuloma and calcified hilar lymph nodes consistent with prior granulomatous infection. 4. Cholecystectomy.
--- NOTE | 2025-04-29 17:50 | CT_ITS ---
PROCEDURE INFORMATION: Exam: CTA Neck With Contrast Exam date and time: 04/29/2025 7:07 PM Age: 70 years old Clinical indication: Vertigo TECHNIQUE: Imaging protocol: Computed tomographic angiography of the neck with contrast. Exam focused on the cervical segments of the vasculature. 3D rendering (Not supervised by radiologist): MIP and/or 3D reconstructed images were created by the technologist. Radiation optimization: All CT scans at this facility use at least one of these dose optimization techniques: automated exposure control; mA and/or kV adjustment per patient size (includes targeted exams where dose is matched to clinical indication); or iterative reconstruction. Contrast material: ISO 370; Contrast volume: 80 ml; Contrast route: INTRAVENOUS (IV); COMPARISON: CT ANGIO NECK 04/29/2025 7:07 PM FINDINGS: Right common carotid artery: No stenosis. No dissection or occlusion. Right internal carotid artery: No stenosis of the extracranial segment. No dissection or occlusion. Right external carotid artery: No occlusion or stenosis of the origin. Left common carotid artery: No stenosis. No dissection or occlusion. Left internal carotid artery: No stenosis of the extracranial segment. No dissection or occlusion. Left external carotid artery: No occlusion or stenosis of the origin. Right vertebral artery: No stenosis. No dissection or occlusion. Left vertebral artery: No stenosis. No dissection or occlusion. Soft tissues: Normal. No significant soft tissue swelling. Bones/joints: No acute fracture. IMPRESSION: No hemodynamically significant extracranial cerebrovascular stenosis or occlusion. REFERENCES: NASCET CRITERIA. The degree of stenosis in the cervical segment of the internal carotid artery is based on NASCET criteria. Normal is no stenosis. Mild is less than 50% stenosis. Moderate is 50-69% stenosis. Severe is 70% to 99% stenosis. Total occlusion is no detectable patent lumen.
--- NOTE | 2025-04-29 17:50 | CT_ITS ---
PROCEDURE INFORMATION: Exam: CTA Head With Contrast, Arteriography Exam date and time: 04/29/2025 7:07 PM Age: 70 years old Clinical indication: Vertigo TECHNIQUE: Imaging protocol: Computed tomographic angiography of the head with contrast. Exam focused on the arteries. 3D rendering (Not supervised by radiologist): MIP and/or 3D reconstructed images were created by the technologist. Radiation optimization: All CT scans at this facility use at least one of these dose optimization techniques: automated exposure control; mA and/or kV adjustment per patient size (includes targeted exams where dose is matched to clinical indication); or iterative reconstruction. Contrast material: ISOUVE 370; Contrast volume: 80 ml; Contrast route: INTRAVENOUS (IV); COMPARISON: CT HEAD/BRAIN WO CON 04/29/2025 7:06 PM FINDINGS: ANTERIOR CIRCULATION: Right internal carotid artery: Intracranial segment is patent with no significant stenosis. No aneurysm. Right middle cerebral artery: No occlusion or significant stenosis. No aneurysm. Right anterior cerebral artery: No occlusion or significant stenosis. No aneurysm. Left internal carotid artery: Intracranial segment is patent with no significant stenosis. No aneurysm. Left middle cerebral artery: No occlusion or significant stenosis. No aneurysm. Left anterior cerebral artery: No occlusion or significant stenosis. No aneurysm. POSTERIOR CIRCULATION: Right vertebral artery: No occlusion or significant stenosis. No aneurysm. Left vertebral artery: No occlusion or significant stenosis. No aneurysm. Basilar artery: No occlusion or significant stenosis. No aneurysm. Right posterior cerebral artery: No occlusion or significant stenosis. No aneurysm. Left posterior cerebral artery: No occlusion or significant stenosis. No aneurysm. Brain: No definite mass, mass effect, or midline shift. Cerebral ventricles: No ventriculomegaly. Bones/joints: Unremarkable. No acute fracture. Soft tissues: Unremarkable. IMPRESSION: No large vessel stenosis or occlusion.
--- NOTE | 2025-04-29 17:50 | HMH.EDGENADL ---
Discharge Plan Disposition Patient Disposition: Home, Self-Care Condition: Good Prescriptions Prescriptions: New cefdinir 300 mg capsule 300 mg PO BID 7 Days Qty: 14 0RF No Action atorvastatin 80 mg tablet 80 mg PO DAILY pantoprazole 40 mg tablet,delayed release (DR/EC) 40 mg PO ONCE Patient Comments: TAKE 1 TABLET BY MOUTH ONCE DAILY escitalopram oxalate 10 mg tablet 10 mg PO DAILY Patient Comments: TAKE 1 TABLET BY MOUTH ONCE DAILY Osteo Bi-Flex Triple Strength 750 mg-644 mg- 30 mg-1 mg tablet 1 tab PO DAILY [facility] AREDS-2 250-90-40-1 mg capsule 1 tab PO BID Trulicity 1.5 mg/0.5 mL pen injector 1.5 mg SQ QWEEK Patient Comments: INJECT 1 AUTO-INJECTOR SUBCUTANEOUSLY ONCE A WEEK aspirin [Adult Low Dose Aspirin] 81 mg tablet,delayed release (DR/EC) 81 mg PO DAILY Qty: 30 2RF Jardiance 25 mg tablet 25 mg PO DAILY gabapentin 100 mg capsule 300 mg PO DAILY insulin lispro [Humalog KwikPen Insulin] 100 unit/mL insulin pen 16 unit SQ TID PRN (Reason: Diabetes) albuterol sulfate 8.5 GM HFA aerosol inhaler 2 puffs inhalation Q4HP PRN (Reason: Shortness Of Breath) 30 Days Qty: 1 0RF albuterol sulfate 2.5 mg /3 mL (0.083 %) solution for nebulization 2.5 mg inhalation Q6H PRN (Reason: dyspnea) Qty: 75 0RF (DME) nebulizer and compressor Device See Rx Instructions .Route Qty: 1 0RF Rx Instructions: As directed Referrals Follow up/Referrals: Provider,Referral, MD [Primary Care Provider, Medical] - See instructions Activity Restrictions/Add. Instructions Additional Instructions/Restrictions: These take the antibiotics as prescribed for your urinary tract infection. Please call your instrument mechanic tomorrow because they can read your Holter monitor and evaluate for any arrhythmias. Return to the emergency department for any acute or worsening symptoms or if you continue to have syncope. Your workup was otherwise negative here in the emergency department. Take the meclizine as needed for any room spinning sensation, return to the emergency department if your dizziness does not resolve with the meclizine at home. Clinical Impressions Clinical Impression: Syncope, Urinary tract infection Stand Alone Forms Stand Alone Forms: Work/School Release Instructions Patient Instructions: DI for Syncope in Adults (Fainting), DI for Syncope in Children (Fainting) Print Language Print Language: Greenlandic Discharge ED Provider: Marixa Armenta General Adult HPI General Chief complaint: Syncope Stated complaint: Fall Time Seen by Provider: 04/29/25 17:50 History of Present Illness HPI narrative: Patient is a 70-year-old female who had cardiac stents placed 1 month ago at [facility] 2 currently has a Holter monitor in place who presents to the emergency department for a syncopal episode and dizziness. States that she was at [facility] when she started to feel lightheaded. Patient states that she sat down on a stool and then passed out and hit her head on the concrete floor. Patient states that she not have any chest pain or shortness of breath prior to the episode but did feel lightheaded. Patient states that she has been having dizziness which is described as a room spinning sensation since and has been constant in nature. Patient states that she saw her primary care provider today and was prescribed meclizine. States that she had not taken any of the meclizine yet. Patient denies any headache or vision changes. Patient denies any numbness or weakness. Patient denies any abdominal pain nausea vomiting or diarrhea. Patient is a diabetic states that she has eaten today. Patient denies any significant changes in her diet. Patient states that she is currently wearing a Holter monitor because her instrument mechanic requested she wear it after her stents were placed. Patient is currently on aspirin and Plavix but denies any other blood thinners. Related Data Home Medications ?Medication ?Instructions ?Recorded ?Confirmed empagliflozin 25 mg tablet 25 mg PO DAILY Diabetes 05/27/20 02/27/25 (Jardiance) dulaglutide 1.5 mg/0.5 mL 1.5 mg SQ QWEEK 02/19/25 02/27/25 subcutaneous pen injector (Trulicity) escitalopram oxalate 10 mg tablet 10 mg PO DAILY 02/19/25 02/27/25 gabapentin 100 mg capsule 300 mg PO DAILY Pain 02/19/25 02/27/25 glucosamine 750 lt-cnflklxcoau-tew 1 tab PO DAILY 02/19/25 02/27/25 no1 644 mg-C 30 mg-arturo 1 mg tablet (Osteo Bi-Flex Triple Strength) insulin lispro 100 unit/mL 16 unit SQ TID PRN Diabetes 02/19/25 02/27/25 subcutaneous pen (Humalog KwikPen (U-100) Insulin) pantoprazole 40 mg tablet,delayed 40 mg PO ONCE 02/19/25 02/27/25 release vit C 250 mg-vit E 90 mg-zinc 40 1 tab PO BID 02/19/25 02/27/25 mg-copper 1 jp-dqkvmp-kaoxra capsule ([facility] AREDS-2) atorvastatin 80 mg tablet 80 mg PO DAILY 02/27/25 02/27/25 Previous Rx's ?Medication ?Instructions ?Recorded albuterol sulfate 90 mcg/actuation 2 puffs inhalation Q4HP PRN 03/22/21 aerosol inhaler Shortness Of Breath 30 days #1 ea albuterol sulfate 2.5 mg/3 mL 2.5 mg (3 mL) inhalation Q6H PRN 03/24/24 (0.083 %) solution for nebulization dyspnea #75 mL nebulizer and compressor #1 ea 03/24/24 aspirin 81 mg tablet,delayed 81 mg PO DAILY #30 tabs 02/19/25 release (Adult Low Dose Aspirin) cefdinir 300 mg capsule 300 mg PO BID 7 days #14 caps 04/29/25 Allergies Allergy/AdvReac Type Severity Reaction Status Date / Time silver sulfadiazine (From Allergy Unknown Hives Verified 02/27/25 12:55 Silvadene) [facility] Disclaimer: The information contained in this section may have been updated after the patient was seen, as this information can be updated by other users. Medical History (Updated 04/29/25 @ 22:01 by Marixa Armenta DO) CAD in [place] artery Sleep apnea COPD (chronic obstructive pulmonary disease) Gout History of gastroesophageal reflux (GERD) Diabetes mellitus, type 2 History of cataract Surgical History History of section History of hysterectomy History of cholecystectomy Family History Other Family history of cancer Family history of diabetes mellitus type II Family history of myocardial infarction Social History Smoking Status: Former smoker alcohol intake: current substance use type: denies use current occupational status: employed Travel in the last 8 weeks?: None Have you lived/traveled outside US in past 30 days?: No Contact w/someone who lives/traveled outside US past 30 days?: No Exposure to someone with infectious disease in past 14 days?: No Do you have a fever (greater than 100.4 F or 38 C)?: No Have you tested positive for COVID-19?: No Exposed to someone with COVID-19 in past 14 days?: No Do you have a sore throat?: No Do you have a cough?: No Do you have any weakness?: No Do you have any diarrhea?: No Are you experiencing any unusual bleeding?: No Do you have any muscle aches/pain?: No Do you have any abdominal pain?: No Are you experiencing loss of taste or smell?: No Other Medical History Have you received the Flu Vaccine for this season: No Have you received the Pneumonia Vaccine: Yes ROS Obtained: Yes All systems reviewed & no additional complaints except as documented and Yes Systems reviewed as appropriate & no additional complaints except as documented Physical Exam General General appearance: alert and in no apparent distress Head Head exam: normocephalic, normal inspection and other (small 1 cm abrasion to the left forehead that does not require repair) Eye Eye exam: Present normal appearance, PERRL, EOMI and other (2 beat nystagmus horizontally to the left, no vertical nystagmus); Absent scleral icterus ENT ENT exam: Present normal exam and normal external ear exam Neck Neck exam: Present normal inspection and full ROM Chest Chest inspection: Present normal inspection and symmetric chest wall rise Respiratory Respiratory exam: Present normal lung sounds bilaterally; Absent respiratory distress or wheezes Cardiovascular Cardiovascular exam: Present regular rate, normal rhythm and normal heart sounds Abdominal Exam Abdominal exam: Present soft and distention; Absent tenderness, guarding or rebound Extremities Exam Extremities exam: Present normal inspection and full ROM Back Exam Back exam: Present normal inspection and full ROM Neurological Exam Neurological exam: Present alert, oriented X3, CN II-XII intact, normal gait and reflexes normal; Absent motor sensory deficit Psychiatric Psychiatric exam: Present normal affect and normal mood Skin Skin exam: Present warm and dry Medical Decision Making Medical Records Medical records reviewed: Yes I reviewed the patient's medical records. Screening: Per USPSTF and CDC recommendations, given the prevalence of disease in our region, it is our hospital?s policy to screen for HIV and viral Hepatitis for all patients aged 18 and over and those with ongoing risk factors. Jorge Luis Inquiry Pt receiving controlled substance: No Vital Signs: 04/29/25 17:31 04/29/25 18:00 04/29/25 18:15 Temperature 97.9 F Temperature Source Oral Pulse Rate 73 76 Pulse Rate [Radial] 77 Respiratory Rate 18 Blood Pressure 108/54 L Blood Pressure [Left Arm] 109/57 L Blood Pressure Mean [Left Arm] 74 Blood Pressure Source [Left Arm] Automatic Cuff Blood Pressure Position [Left Arm] Supine 02 Sat by Pulse Oximetry 99 96 96 Oxygen Delivery Method Room Air 04/29/25 21:53 Temperature 98.6 F Temperature Source Oral Pulse Rate 85 Pulse Rate [Radial] Respiratory Rate 18 Blood Pressure 124/60 Blood Pressure [Left Arm] Blood Pressure Mean [Left Arm] Blood Pressure Source [Left Arm] Blood Pressure Position [Left Arm] 02 Sat by Pulse Oximetry Oxygen Delivery Method Room Air Lab Data Lab results reviewed: Yes I reviewed the patient's lab results. Lab Results 04/29/25 17:46: WBC 15.0 H, RBC 4.47, Hgb 12.4, Hct 38.1, MCV 85.2, MCH 27.7, MCHC 32.5, RDW 13.7, Plt Count 369, MPV 10.1, Neut % (Auto) 73.2, Lymph % (Auto) 18.3, [place] % (Auto) 6.3, Eos % (Auto) 0.9, Baso % (Auto) 0.7, Neut # (Auto) 10.9 H, Lymph # (Auto) 2.7, [place] # (Auto) 0.9, Eos # (Auto) 0.1, Baso # (Auto) 0.1, Sodium 138, Potassium 4.0, Chloride 99, Carbon Dioxide 30, Anion Gap 13.0, BUN 15, Creatinine 1.00, Estimated Creat Clear 70, Estimated GFR 55 L, Est GFR ( Amer) 66, Glucose 137 H, Calcium 9.0, Magnesium 1.6, Total Bilirubin 0.5, AST 31, ALT 17, Alkaline Phosphatase 168 H, Troponin I < 0.01, Total Protein 7.8, Albumin 3.8, Globulin 4.0 H, Albumin/Globulin Ratio 1.0 L, Lipase 133, HCV Ab GIUSEPPE w/Rflx PCR Qn Negative, HIV Ag/Ab Combo Qual Negative 04/29/25 20:31: Urine Color Yellow, Urine Appearance Clear, Urine pH 6.5, Ur Specific [place] 1.010, Urine Protein Trace, Urine Glucose (UA) 3+, Urine Ketones Negative, Urine Blood 1+ A, Urine Nitrate Negative, Urine Bilirubin Negative, Urine Urobilinogen 0.2, Ur Leukocyte Esterase 1+ A, Urine RBC None, Urine WBC 20-50, Ur Squamous Epith Cells None, Urine Bacteria 4+ 04/29/25 21:09: Troponin I < 0.01 04/29/25 17:46 04/29/25 17:46 Orders (Tests/Meds): ED MEDICATIONS Generic Name Dose Route Start Last Admin Trade Name Freq PRN Reason Stop Dose Admin Ceftriaxone Sodium 2 gm/ 100 mls @ 200 mls/hr 04/29/25 21:15 04/29/25 21:55 Sodium Chloride IV 05/09/25 21:14 Infused Q24H ELVA Infusion Sodium Chloride 10 ml 04/29/25 19:09 04/29/25 19:10 Sodium Chloride 0.9% 10ml Syr (Rad Only) IV 05/29/25 19:08 10 ml NEEDED PRN Administration Maintain IV Site Discontinued Medications Generic Name Dose Route Start Last Admin Trade Name Freq PRN Reason Stop Dose Admin Lactated Ringer's 1,000 mls @ 999 mls/hr 04/29/25 17:50 04/29/25 20:17 Lactated Ringer's 1000 Ml Bag IV 04/29/25 18:50 Infused .Q1H1M ONE Infusion Iopamidol 150 ml 04/29/25 19:09 04/29/25 19:10 Iopamidol-370 (76%);100ml Bottle IV 04/29/25 19:10 150 ml ONCE ONE Administration Meclizine HCl 25 mg 04/29/25 17:52 04/29/25 18:20 Meclizine 25mg Tablet PO 04/29/25 17:53 25 mg ONCE ONE Administration Sodium Chloride 50 ml 04/29/25 19:09 04/29/25 19:10 0.9 % Sodium Chloride 50 Ml Vial IV 04/29/25 19:10 50 ml ONCE ONE Administration Tetanus/Reduced Diphtheria/Acell Pertussis 0.5 ml 04/29/25 17:50 04/29/25 18:20 Tet/Diphth/Pert-Adult 0.5ml Syringe IM 04/29/25 17:51 0.5 ml .ONCE ONE Administration ORDERS Category Date Time Status CT angio chest PE protocol Stat Cat Scan 04/29/25 17:[address] angio head Stat Cat Scan 04/29/25 17:[address] angio neck Stat Cat Scan 04/29/25 17:[address] head/brain wo con Stat Cat Scan 04/29/25 17:50 Completed CBC w/Auto Diff [Complete Blood Count Auto Diff] Stat Lab 04/29/25 17:46 Completed CMP [Comprehensive Metabolic Panel] Stat Lab 04/29/25 17:46 Completed HIV Combo Stat Lab 04/29/25 17:46 Completed Hepatitis C Ab Qual. W/ RFX Stat Lab 04/29/25 17:46 Completed Lactic Acid Stat Lab 04/29/25 17:52 Ordered Lipase Stat Lab 04/29/25 17:46 Completed MAG [Magnesium] Stat Lab 04/29/25 17:46 Completed Trop I [Troponin I] Stat Lab 04/29/25 17:46 Completed Troponin I Q3H Lab 04/29/25 21:09 Completed Troponin I Q3H Lab 04/30/25 00:00 Ordered UA [Urinalysis and Microscopic] Stat Lab 04/29/25 20:31 Completed Urine Culture Stat Micro 04/29/25 17:50 Received Medical Decision Narrative: Patient is a 70-year-old female with a past medical history of cardiac stents placed 1 month ago who presents to the emergency department with syncope and dizziness. On arrival, patient was hemodynamically stable with unremarkable vital signs. Differential includes but not limited to: ACS/DE, arrhythmia, electrolyte abnormalities, orthostatic syncope, vasovagal syncope, intracranial process, peripheral vertigo, central vertigo, amongst others. Patient's symptoms, labs were ordered as well as CTA head and neck CT head as well as CT chest. Patient's EKG was reviewed and interpreted by myself and showed normal sinus rhythm without acute ST or T wave changes concerning for ischemia CBC showed mild leukocytosis of 15, hemoglobin was stable. CMP was unremarkable. Glucose was normal. Initial troponin less than 0.01, second troponin less than 0.01. UA showed evidence of an affection with 4+ bacteria, 20-50 white blood cells 1+ leuk esterase nitrite negative. CT head, CTA head and neck showed no acute pathology, CT chest showed no acute pathology. Per chart review, patient had a carotid duplex done on February 06, 2025 that showed no acute pathology. Patient also had a myocardial perfusion scan done at that same time with the coronary CTA done on 02/18/2025. Given patient's horizontal nystagmus and that patient's dizziness was worse with eye movements as well as movements of her head patient's dizziness and vertigo likely peripheral nature. Patient was given IV fluids as well as meclizine. Patient's vertigo improved in the emergency department. Patient was able to ambulate without difficulties. Patient's otherwise unremarkable workup I felt the patient was stable and appropriate for discharge home. Patient was advised to call her instrument mechanic tomorrow to discuss her Holter monitor and her syncope. Patient was otherwise discharged home in stable condition return precautions were discussed. Critical Care Critical Care Time Critical Care Time: No
[2025-04-29 18:00] VITALS: BP 108/54; PULSE 73; O2SAT 96
[2025-04-29 18:05] LABS: Hematocrit 38.1 % (37.0-47.0); Hemoglobin 12.4 g/dL (12.2-16.2); Immature Granulocytes % 0.6 %; Mean Corpuscular HGB Conc 32.5 g/dL (31.8-35.4); Mean Corpuscular Hemoglobin 27.7 pg (27.0-31.2); Mean Corpuscular Volume 85.2 fl (81-99); Nucleated Red Blood Cells % 0 %; Platelet Count 369 K/mm3 (142-424); Red Blood Count 4.47 M/mm3 (4.20-5.40); Red Cell Distribution Width-SD 42.2 fL; White Blood Count 15.0 K/mm3 (4.8-10.8)
--- NOTE | 2025-04-29 18:13 | ECG_ITS ---
APPROVED REPORT Exam: Resting ECG HR:71 bpm ECG Measurements Heart Rate 71 AXES IA 167 P 71 QRSd 92 QRS 89 QT 399 T 74 QTc 422 Conclusion Normal sinus rhythm without acute ST or T wave changes concerning for ischemia Electronically signed by : Marixa Armenta, 04/30/2025 00:40:20
[2025-04-29 18:14] LABS: Albumin Level 3.8 g/dl (3.5-5.0); Chloride 99 mmol/L (98-107); Potassium 4.0 mmoL/L (3.5-5.1); Sodium 138 mmol/L (136-145)
[2025-04-29 18:15] VITALS: PULSE 76; O2SAT 96
[2025-04-29 18:17] LABS: Alanine Aminotransferase 17 U/L (12-78); Albumin/Globulin Ratio 1.0 (1.1-1.8); Alkaline Phosphatase 168 U/L (38-126); Anion Gap 13.0 mEq/L (5-15); Aspartate Amino Transferase 31 U/L (14-36); Bilirubin,Total 0.5 mg/dl (0.2-1.3); Blood Urea Nitrogen 15 mg/dl (7-17); Calcium 9.0 mg/dl (8.4-10.2); Carbon Dioxide 30 mmol/L (22.0-30.0); Creatinine Clearance Estimated 70 mL/min (50-200); Creatinine,Serum 1.00 mg/dl (0.52-1.04); Estimated Glomerular Filt Rate 55 ml/min (>60); GFR (African American) 66 ML/MIN (>60); Globulin 4.0 g/dL (1.3-3.2); Glucose 137 mg/dl (74-100); Lipase 133 U/L (23-300); Total Protein,Serum 7.8 g/dl (6.3-8.2)
[2025-04-29 18:18] LABS: Magnesium 1.6 mg/dl (1.6-2.3)
[2025-04-29] MEDS: LACTATED RINGERS 1000ML 1,000 ML 999 ML IV (18:19)
[2025-04-29] MEDS: TET/DIPHTH/PERT-ADULT 0.5ML SYRINGE 0.5 ML IM (18:20)
[2025-04-29] MEDS: MECLIZINE 25MG TABLET 25 MG PO (18:20)
[2025-04-29 18:51] LABS: Troponin I < 0.01 ng/ml (0.00-0.034)
--- NOTE | 2025-04-29 19:00 | PC.NURSE ---
PT TO CT
[2025-04-29 19:06] LABS: Hepatitis C Ab Qual. W/ RFX NEGATIVE (Negative)
[2025-04-29] MEDS: 0.9 % SODIUM CHLORIDE 50 ML VIAL IV (19:10)
[2025-04-29] MEDS: IOPAMIDOL-370 (76%);100ML BOTTLE 150 ML IV (19:10)
[2025-04-29] MEDS: SODIUM CHLORIDE 0.9% 10ML SYR (RAD ONLY) 10 ML IV (19:10)
[2025-04-29 20:38] LABS: Microscopic, Urine URINE MICROSCOPIC (MICROSCOPIC)
[2025-04-29 20:39] LABS: Bilirubin,Urine Negative (Negative); Color,Urine YELLOW (Yellow); Glucose,Urine (UA) 3+ (Negative); Ketones,Urine Negative (Negative); Leukocyte Esterase,Urine 1+ (Negative); PH,Urine 6.5 (5.0-8.5); Protein,Urine TRACE (Negative); Specific Gravity, Urine 1.010 (1.005-1.030); Urobilinogen,Urine 0.2 EU/dl (0.2)
[2025-04-29 21:01] LABS: Bacteria,Urine 4+ /lpf; WBC,Urine 20-50 #/hpf (0-3)
[2025-04-29 21:51] LABS: Troponin I < 0.01 ng/ml (0.00-0.034)
[2025-04-29 21:53] VITALS: BP 124/60; PULSE 85; RESP 18; TEMP 37; O2SAT 95
--- NOTE | 2025-05-01 08:06 | PC.NURSE ---
Preliminary urine culture reviewed by Dr. Caballero. No further action needed at this time.
--- NOTE | 2025-05-02 08:01 | PC.NURSE ---
Final urine culture reviewed. Patient discharged home on appropriate antibiotics. No further action needed at this time.
== END 2025-04-29 22:14 | disposition home or self-care (01) ==
PROVIDERS: Emergency Provider Student in an Organized Health Care Education/Training Program
DX: N39.0 Urinary tract infection, site not specified (principal); R55 Syncope and collapse; S00.81XA Abrasion of other part of head, initial encounter; R42 Dizziness and giddiness; E11.9 Type 2 diabetes mellitus without complications; Z86.79 Personal history of other diseases of the circulatory system; Z95.5 Presence of coronary angioplasty implant and graft; W19.XXXA Unspecified fall, initial encounter; Z79.4 Long term (current) use of insulin; B96.20 Unspecified Escherichia coli [E. coli] as the cause of diseases classified elsewhere
CPT/HCPCS: 70450; 70496; 70498; 71275; 80053; 81001; 83690; 83735; 84484; 85025; 86803; 87086; 87088; 87186; 87389; 90471; 90715; 93005; 96361; 96365; 99285; J0696; J7120; Q9967